=== PATIENT | female | born 1950 | race Caucasian/White ===

== ENCOUNTER 2020-07-23 08:17 | Outpatient (REF) | payer MEDICARE, SELFPAY ==
[2020-07-23 12:21] LABS: Alanine Aminotransferase 19 U/L (0-31); Alkaline Phosphatase 59 U/L (39-117); Anion Gap 10 (12-20); Aspartate Amino Transferase 16 U/L (5-31); Bilirubin Total 0.6 mg/dL (0.0-1.0); Blood Urea Nitrogen 21 mg/dL (9-16); Calcium 8.8 mg/dL (8.4-10.2); Carbon Dioxide 29 mmol/L (22-29); Chloride 103 mmol/L (96-108); Cholesterol 241 mg/dL; Estimated Glomerular Filt Rate > 60; Glucose Fasting 92 mg/dL (60-99); HDL Cholesterol 56 mg/dL; LDL Cholesterol Calculated 169 mg/dl; Potassium 4.4 mmol/L (3.3-5.1); Sodium 138 mmol/L (135-145); Total Protein 6.4 g/dL (6.5-8.0); Triglycerides 81 mg/dL
== END 2020-07-23 08:18 | disposition home or self-care (01) ==
LOC: HO.MANLDS 08:17
PROVIDERS: PCP Internal Medicine; Visit Provider Internal Medicine
DX: E78.5 Hyperlipidemia, unspecified (principal)
CPT/HCPCS: 36415; 80053; 80061

== ENCOUNTER 2020-11-05 08:14 | Outpatient (REF) | payer MEDICARE, SELFPAY ==
[2020-11-05 12:07] LABS: Cholesterol 262 mg/dL; HDL Cholesterol 60 mg/dL; LDL Cholesterol Calculated 185 mg/dl; Triglycerides 88 mg/dL
== END 2020-11-05 08:15 | disposition home or self-care (01) ==
LOC: HO.MANLDS 08:14
PROVIDERS: PCP Internal Medicine; Visit Provider Internal Medicine
DX: E78.5 Hyperlipidemia, unspecified (principal)
CPT/HCPCS: 36415; 80061

== ENCOUNTER 2021-02-06 08:35 | Outpatient (REF) | payer MEDICARE, SELFPAY ==
[2021-02-06 10:49] LABS: Hematocrit 38.1 % (37.0-47.0); Hemoglobin 12.3 g/dl (12.0-16.0); Mean Corpuscular HGB Conc 32.3 g/dl (31.0-35.0); Mean Corpuscular Hemoglobin 29.9 pg (27.0-33.0); Mean Corpuscular Volume 92.5 fL (80.0-98.0); Mean Platelet Volume 11.1 fL (9.4-12.3); Platelet Count 212 X10*3/uL (160-400); Red Blood Count 4.12 X10*6/uL (4.20-5.50); Red Cell Distribution Width 13.2 % (11.0-16.0); White Blood Count 4.5 X10*3/uL (4.8-10.8)
[2021-02-06 11:27] LABS: Alanine Aminotransferase 17 U/L (0-31); Alkaline Phosphatase 62 U/L (39-117); Anion Gap 9 (12-20); Aspartate Amino Transferase 19 U/L (5-31); Bilirubin Total 0.7 mg/dL (0.0-1.0); Blood Urea Nitrogen 15 mg/dL (9-16); Carbon Dioxide 30 mmol/L (22-29); Chloride 103 mmol/L (96-108); Cholesterol 169 mg/dL; Estimated Glomerular Filt Rate > 60; Glucose Fasting 101 mg/dL (60-99); HDL Cholesterol 62 mg/dL; LDL Cholesterol Calculated 95 mg/dl; Magnesium 2.1 mg/dL (1.6-2.6); Potassium 4.5 mmol/L (3.3-5.1); Sodium 137 mmol/L (135-145); Total Protein 6.5 g/dL (6.5-8.0); Triglycerides 61 mg/dL
[2021-02-06 11:47] LABS: Vitamin D 25-OH Total 26.9 ng/mL (>30)
[2021-02-06 11:56] LABS: Vitamin B12 414 pg/mL (200-900)
== END 2021-02-06 08:36 | disposition home or self-care (01) ==
LOC: HO.MANLDS 08:35
PROVIDERS: PCP Internal Medicine; Visit Provider Internal Medicine
DX: E78.5 Hyperlipidemia, unspecified (principal); I10 Essential (primary) hypertension
CPT/HCPCS: 36415; 80053; 80061; 82306; 82607; 83735; 85027

== ENCOUNTER 2021-07-15 08:28 | Outpatient (REF) | payer MEDICARE, SELFPAY ==
[2021-07-15 11:44] LABS: Alanine Aminotransferase 14 U/L (0-31); Albumin Level 3.8 g/dL (3.5-5.0); Alkaline Phosphatase 65 U/L (39-117); Anion Gap 8 (12-20); Aspartate Amino Transferase 19 U/L (5-31); Bilirubin Total 0.6 mg/dL (0.0-1.0); Blood Urea Nitrogen 16 mg/dL (9-16); Calcium 8.8 mg/dL (8.4-10.2); Carbon Dioxide 28 mmol/L (22-29); Chloride 106 mmol/L (96-108); Cholesterol 157 mg/dL; Estimated Glomerular Filt Rate > 60; Glucose Fasting 107 mg/dL (60-99); HDL Cholesterol 55 mg/dL; LDL Cholesterol Calculated 94 mg/dl; Potassium 4.2 mmol/L (3.3-5.1); Sodium 138 mmol/L (135-145); Total Protein 6.4 g/dL (6.5-8.0); Triglycerides 42 mg/dL
== END 2021-07-15 08:29 | disposition home or self-care (01) ==
LOC: HO.MANLDS 08:28
PROVIDERS: PCP Internal Medicine; Visit Provider Internal Medicine
DX: I10 Essential (primary) hypertension (principal); E78.5 Hyperlipidemia, unspecified
CPT/HCPCS: 36415; 80053; 80061

== ENCOUNTER 2023-03-03 08:35 | Outpatient (REF) | payer MEDICARE, SELFPAY ==
[2023-03-03 13:48] LABS: MANUAL DIFF FLAG NO
[2023-03-03 13:55] LABS: Basophils Percent Auto 0.7 % (0-2); Eosinophils Absolute Auto 0.1 X10*3/uL (0.0-0.4); Eosinophils Percent Auto 2.8 % (0-4); Hematocrit 41.1 % (37.0-47.0); Imm Gran Abs Auto 0.01 X10*3/uL (0.00-0.03); Imm Gran Pct Auto 0.2 % (0.0-0.4); Lymphocytes Absolute Auto 1.1 X10*3/uL (1.2-4.9); Mean Corpuscular HGB Conc 31.6 g/dl (31.0-35.0); Mean Corpuscular Hemoglobin 29.5 pg (27.0-33.0); Mean Corpuscular Volume 93.4 fL (80.0-98.0); Mean Platelet Volume 11.1 fL (9.4-12.3); Monocytes Absolute Auto 0.4 X10*3/uL (0.1-1.2); Monocytes Percent Auto 9.6 % (2-11); Neutrophils Absolute Auto 2.9 x10*3/uL (2.0-8.3); Neutrophils Percent Auto 62.7 % (45-73); Platelet Count 207 X10*3/uL (160-400); Red Cell Distribution Width 13.4 % (11.0-16.0); White Blood Count 4.6 X10*3/uL (4.8-10.8)
[2023-03-03 14:36] LABS: Alanine Aminotransferase 18 U/L (0-31); Alkaline Phosphatase 63 U/L (39-117); Anion Gap 12 (12-20); Aspartate Amino Transferase 23 U/L (5-31); Bilirubin Total 0.6 mg/dL (0.0-1.0); Blood Urea Nitrogen 18 mg/dL (9-16); Calcium 9.4 mg/dL (8.4-10.2); Carbon Dioxide 27 mmol/L (22-29); Chloride 104 mmol/L (96-108); Cholesterol 170 mg/dL (<200); Estimated Glomerular Filt Rate > 60; Glucose Random 91 mg/dL (60-115); HDL Cholesterol 63 mg/dL (>40); LDL Cholesterol Calculated 91 mg/dL (<100); Potassium 4.1 mmol/L (3.3-5.1); Sodium 139 mmol/L (135-145); Total Protein 7.1 g/dL (6.5-8.0); Triglycerides 82 mg/dL (<150); Vitamin D 25-OH Total 60.1 ng/mL (>30)
== END 2023-03-03 08:36 | disposition home or self-care (01) ==
LOC: HO.MANLDS 08:35
PROVIDERS: Visit Provider Internal Medicine
DX: I10 Essential (primary) hypertension (principal)
CPT/HCPCS: 36415; 80053; 80061; 82306; 85025

== ENCOUNTER 2024-02-16 13:47 | Outpatient (REF) | payer MEDICARE, SELFPAY ==
[2024-02-16 13:54] LABS: MANUAL DIFF FLAG NO
[2024-02-16 15:01] LABS: Basophils Percent Auto 0.3 % (0-2); Eosinophils Absolute Auto 0.1 X10*3/uL (0.0-0.4); Eosinophils Percent Auto 1.7 % (0-4); Hematocrit 36.2 % (37.0-47.0); Hemoglobin 11.8 g/dl (12.0-16.0); Imm Gran Abs Auto 0.01 X10*3/uL (0.00-0.03); Imm Gran Pct Auto 0.2 % (0.0-0.4); Lymphocytes Absolute Auto 1.2 X10*3/uL (1.2-4.9); Mean Corpuscular HGB Conc 32.6 g/dl (31.0-35.0); Mean Corpuscular Hemoglobin 30.2 pg (27.0-33.0); Mean Corpuscular Volume 92.6 fL (80.0-98.0); Monocytes Absolute Auto 0.4 X10*3/uL (0.1-1.2); Monocytes Percent Auto 7.3 % (2-11); Neutrophils Absolute Auto 4.2 x10*3/uL (2.0-8.3); Neutrophils Percent Auto 70.5 % (45-73); Platelet Count 211 X10*3/uL (160-400); Red Blood Count 3.91 X10*6/uL (4.20-5.50); Red Cell Distribution Width 13.5 % (11.0-16.0)
[2024-02-16 15:06] LABS: Alanine Aminotransferase 20 U/L (0-31); Albumin Level 3.9 g/dL (3.5-5.0); Alkaline Phosphatase 58 U/L (39-117); Anion Gap 10 (12-20); Aspartate Amino Transferase 31 U/L (5-31); Bilirubin Total 0.6 mg/dL (0.0-1.0); Blood Urea Nitrogen 14 mg/dL (9-16); Carbon Dioxide 25 mmol/L (22-29); Chloride 103 mmol/L (96-108); Cholesterol 150 mg/dL (<200); Estimated Glomerular Filt Rate > 60; Glucose Random 97 mg/dL (60-115); HDL Cholesterol 55 mg/dL (>40); LDL Cholesterol Calculated 77 mg/dL (<100); Potassium 3.7 mmol/L (3.3-5.1); Sodium 134 mmol/L (135-145); Total Protein 6.5 g/dL (6.5-8.0); Triglycerides 90 mg/dL (<150)
[2024-02-16 15:21] LABS: Vitamin D 25-OH Total 59.3 ng/mL (>30)
== END 2024-02-16 13:48 | disposition home or self-care (01) ==
LOC: HO.MANLNP 13:47
PROVIDERS: Visit Provider Internal Medicine
DX: I10 Essential (primary) hypertension (principal)
CPT/HCPCS: 36415; 80053; 80061; 82306; 85025

== ENCOUNTER 2025-01-03 14:27 | Outpatient (REF) | payer MEDICARE, SELFPAY ==
--- OUTSIDE RECORDS SUMMARY | 2025-01-03 17:21 | XMS_ITS | Encounter Summary ---
Author Organization [facility] Address [address] [address] Phone Care Team Providers Care Wellness Coordinator Name Role Phone Kyaw Rao DO Unavailable Ronen Elizondo MD Unavailable Maria G Alves RAILROAD CAR REPAIR SUPERVISOR Unavailable [phone] Sana Collazo MD Unavailable Ruma Bolivar RDCS Unavailable [email or web address] Saira Quevedo MD Unavailable [phone] Melissa Chandra RAILROAD CAR REPAIR SUPERVISOR Unavailable Beto Paul MD Unavailable Kyaw Rao DO Primary Care Provider [phone] Kyaw Rao DO Primary Care Provider [phone] Encounter Details Date Type Department Care Team (Late st Contact Info) Description 11/28/2019 Procedure Pass [facility], [address] [address] Social History Tobacco Use Types Packs/Day Years Used Date Smoking Tobacco: Never Smokeless Tobacco: Never Alcohol Use Standard Drinks/Week Comments Yes 1 (1 standard drink = 0.6 oz pur e alcohol) 1 glass per month Comments No Sex and Gender Information Value Date Recorded Sex Assigned at Female 05/07/2021 9:30 PM EST Legal Sex Female 10:02 PM EDT Gender Identity Female 05/07/2021 9:30 PM EST Sexual Orientation Straight 05/07/2021 9: 30 PM EST 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 Not on file Not on file Not on file documented as of this encounter Plan of Treatment Not on file documented as of this encounter Visit Diagnoses Not on filedocumented in this encounter Care Teams Wellness Coordinator Relationship Specialty Start Date End Date Kyaw Rao DO PCP - General Internal Medicine 01/22/17 10/04/24 Kyaw Rao DO [address] [place] [address] PCP - General Internal Medicine 10/05/24 Kyaw Rao DO Historical LMR Provider 01/05/17 Ronen Elizondo MD [address] [address] Historical LMR Provider 01/05/17 Maria G Alves NP [address] [place] [address] [email or web address] Historical LMR Provider 01/05/17 2 Sana Collazo MD [address] [address] Historical LMR Provider 01/05/17 Ruma Bolivar, ARUNA Historical LMR Provider 01/05/17 03/30/21 Saira Quevedo MD [address] [place] [address] [facility] [place] [address] [email or web address] Historical LMR Provider 01/05/17 Melissa Chandra NP [address] [place] [address] Historical LMR Provider 01/05/17 2 Beto Paul MD [address] [place] [address] Historical LMR Provider 01/05/17 2 documented as of this encounter Additional Source Comments The information contained in this document represents components of the legal health record. It is not the complete legal health record.[facility]
--- OUTSIDE RECORDS SUMMARY | 2025-01-03 17:22 | XMS_ITS | Encounter Summary ---
Author Organization [facility] Address [address] [address] Phone Care Team Providers Care Shampoo Person Name Role Phone Kyaw Rao DO Unavailable Ronen Elizondo MD Unavailable Maria G Alves NURSING SERVICE DIRECTOR Unavailable [phone] Sana Collazo MD Unavailable Ruma Bolivar RDCS Unavailable [email or web address] Saira Quevedo MD Unavailable [phone] Melissa Chandra NURSING SERVICE DIRECTOR Unavailable Beto Paul MD Unavailable Kyaw Rao DO Primary Care Provider [phone] Kyaw Rao DO Primary Care Provider [phone] Encounter Details Date Type Department Care Team (Late st Contact Info) Description 10/25/2019 Ancillary Orders Virtual Department [address] [place] [address] Kyaw Rao DO [address] [facility] [place] [address] [place] [address] [email or web address] Breast screening Social History Tobacco Use Types Packs/Day Years [...] 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 Recommend routine annual surveillance. BI-RADS CATEGORY 2 - BENIGN DENSITY: There are scattered fibroglandular densities. Narrative 12/28/2019 9:06 AM EDT 69-year-old female with no current breast symptoms. Comparison made to previous on 10/02/2017 and as far back as 07/31/2011. Interpretation made in conjunction with computer-aided detection and tomosynthesis. There are scattered areas of fibroglandular density. Stable bilateral scattered calcifications. There are no suspicious masses, areas of architectural distortion, or suspicious clusters of microcalcifications. Kyaw Rao DO IMG MG EXAMS Final Result documented in this encounter Visit Diagnoses Diagnosis Breast screening Breast screening, unspecified Breast screening Breast screening, unspecified documented in this encounter Care Teams Shampoo Person Relationship Specialty Start Date End Date Kyaw Rao DO PCP - General Internal Medicine 01/22/17 10/04/24 Kyaw Rao DO [address] [place] [address] PCP - General Internal Medicine 10/05/24 Kyaw Rao DO Historical LMR Provider 01/05/17 Ronen Elizondo MD [address] [place] [address] Historical LMR Provider 01/05/17 Maria G Alves NP 21 [place] [address] [email or web address] Historical LMR Provider 01/05/17 2 Sana Collazo MD [address] [place] [address] Historical LMR Provider 01/05/17 Ruma Bolivar, RDCS Historical LMR Provider 01/05/17 03/30/21 Saira Quevedo MD [address] [place] [address] [facility], [place] [address] Historical LMR Provider 01/05/17 Melissa Chandra NP [address] [place] [address] Historical LMR Provider 01/05/17 2 Beto Paul MD [address] [place] [address] Historical LMR Provider 01/05/17 2 documented as of this encounter Additional Source Comments The information contained in this document represents components of the legal health record. It is not the complete legal health record.[facility]
--- OUTSIDE RECORDS SUMMARY | 2025-01-03 17:22 | XMS_ITS | Encounter Summary ---
Author Organization [facility] Address [address] [address] Phone Care Team Providers Care Kaiako Kohanga Reo Name Role Phone Kyaw Rao DO Unavailable Ronen Elizondo MD Unavailable Maria G Alves NUTRITION TECHNICIAN Unavailable [phone] Sana Collazo MD Unavailable Ruma Bolivar RDCS Unavailable [email or web address] Saira Quevedo MD Unavailable [phone] Melissa Chandra NUTRITION TECHNICIAN Unavailable Beto Paul MD Unavailable Kyaw Rao DO Primary Care Provider [phone] Kyaw Rao DO Primary Care Provider [phone] Encounter Details Date Type Department Care Team (Late st Contact Info) Description 07/09/2017 Ancillary Orders Virtual Department [address] [place] [address] Radha Mccallum PA-C [address] [place] [address] Estrogen deficiency Social History Tobacco Use Types Packs/Day Years Used Date Smoking Tobacco: Unknown Smokeless Tobacco: Never Alcohol Use Standard Drinks/Week Comments Not Asked 1 (1 standard drink = 0.6 oz pur e alcohol) Comments Unknown Sex and Gender Information Value Date Recorded Sex Assigned at Female 05/07/2021 9:30 PM EST Legal Sex Female 10:02 PM EDT Gender Identity Female 05/07/2021 9:30 PM EST Sexual Orientation Straight 05/07/2021 9: 30 PM EST documented as of this encounter Plan of Treatment Not on file documented as of this encounter Results * BD DXA AXIAL (SPINE) WITH HIP (10/02/2017 9:15 AM EDT) Anatomical Region Laterality Modality Bone Density Bone Density 10/02/2017 11:1 8 AM EDT Impressions 10/02/2017 11:21 AM EDT Ongoing osteopenia in the lumbosacral spine with a mild decrease in BMD at all 3 sites since 2011 POS -[id number] Narrative 10/02/2017 11:21 AM EDT This is a 66-year-old female who reports no perceived height loss. No history of steroid use, hormone therapy nor calcium supplementation. Comparison is made to 05/07/2011. Evaluation of the lumbar spine and hips was performed and felt to be technically adequate. Total bone mineral density in the L1-L4 vertebral bodies was calculated at 0.852 gm/cm2 with a T score of -1.8. This falls within the WHO classification of osteopenia. This represents a -4.1% statistically significant decrease BMD since 2011. Total bone mineral density in the right proximal femur was calculated at 0.920 gm/cm2 with a T-score of -0.2 falling within the WHO classification of normal. This represents a -5.4% statistically significant decrease BMD since 2011. Total bone mineral density in the left proximal femur was calculated at 0.889 gm/cm2 with a T-score of -0.4 falling within the WHO classification of normal. This represents a statistically significant -6.9% decrease BMD since 2011. Procedure Note Sreedhar Subramanian MD - 10/02/2017 This is a 66-year-old female who reports no perceived heightloss. No history of steroid use, hormone therapy nor calcium supplementation. Comparison is made to 05/07/2011. Evaluation of the lumbar spine and hips was performed and felt to betechnically adequate. Total bone mineral density in the L1-L4 vertebral bodies was calculated at0.852 gm/cm2 with a T score of -1.8. This falls within the WHOclassification of osteopenia. This represents a -4.1% statistically significant decrease BMD since 2011. Total bone mineral density in the right proximal femur was calculated at0.920 gm/cm2 with a T-score of -0.2 falling within the WHO classificationof normal. This represents a -5.4% statistically significant decrease BMD [id number]. Total bone mineral density in the left proximal femur was calculated at0.889 gm/cm2 with a T-score of -0.4 falling within the WHO classificationof normal. This represents a statistically significant -6.9% decrease BMD since 2011. IMPRESSION: Ongoing osteopenia in the lumbosacral spine with a mild decrease in BMD atall 3 sites since 2011 POS -[id number] June Alessio LEYVA IMG BD BONE DENSITY DEXA Fin al Result documented in this encounter Visit Diagnoses Diagnosis Estrogen deficiency Other ovarian failure Estrogen deficiency Other ovarian failure documented in this encounter Care Teams Kaiako Kohanga Reo Relationship Specialty Start Date End Date Kyaw Rao DO PCP - General Internal Medicine 01/22/17 10/04/24 Kyaw Rao DO [address] [place] [address] PCP - General Internal Medicine 10/05/24 Kyaw Rao DO Historical LMR Provider 01/05/17 Ronen Elizondo MD [address] [place] [address] Historical LMR Provider 01/05/17 Maria G Alves NP 21 [place] [address] [email or web address] Historical LMR Provider 01/05/17 2 Sana Collazo MD [address] [facility], [address] [place] [address] Historical LMR Provider 01/05/17 Ruma Bolivar, CS Historical LMR Provider 01/05/17 03/30/21 Saira Quevedo MD [address] [place] [address] [facility], [place] [address] Historical LMR Provider 01/05/17 Melissa Chandra NP [address] [place] [address] Historical LMR Provider 01/05/17 2 Beto Paul MD [address] [place] [address] Historical LMR Provider 01/05/17 2 documented as of this encounter Additional Source Comments The information contained in this document represents components of the legal health record. It is not the complete legal health record.[facility]
--- OUTSIDE RECORDS SUMMARY | 2025-01-03 17:22 | XMS_ITS | Encounter Summary ---
Author Organization [facility] Address [address] [address] Phone Care Team Providers Care Store Operations Specialist Name Role Phone Kyaw Rao DO Unavailable Rnoen Elizondo MD Unavailable Sana Collazo MD Unavailable Kyaw Rao DO Primary Care Provider [phone] Kyaw Rao DO Primary Care Provider [phone] Encounter Details Date Type Department Care Team (Late st Contact Info) Description 05/18/2023 Transcribe Orders [facility] [address] [place] [address] Kyaw Rao DO [address] [facility] [place] [address] [place] [address] Social History Tobacco Use Types Packs/Day Years Used Date Smoking Tobacco: Never Smokeless Tobacco: Never Alcohol Use Standard Drinks/Week Comments Yes 1 (1 standard drink = 0.6 oz pur e alcohol) 1 glass per month Education Answer Date Recorded Are you interested in more education? Not on anu e 07/18/2022 Are you concerned about learning? Not on file 07/18/2022 No 07/18/2022 No 07/18/2022 Digital Access Answer Date Recorded No 08/16/2022 No 08/16/2022 Reliable internet access at home? Not on file 08/16/2022 Device with a working camera? 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 Not on file Not on file Not on file documented as of this encounter Plan of Treatment Not on file documented as of this encounter Visit Diagnoses Not on filedocumented in this encounter Care Teams Store Operations Specialist Relationship Specialty Start Date End Date Kyaw Rao DO PCP - General Internal Medicine 01/22/17 10/04/24 Kyaw Rao DO [address] [place] [address] PCP - General Internal Medicine 10/05/24 Kyaw Rao DO Historical LMR Provider 01/05/17 Ronen Elizondo MD [address] [place] [address] Historical LMR Provider 01/05/17 Sana Collazo MD [address] [place] [address] Historical LMR Provider 01/05/17 documented as of this encounter Additional Source Comments The information contained in this document represents components of the legal health record. It is not the complete legal health record.[facility]
--- OUTSIDE RECORDS SUMMARY | 2025-01-03 17:22 | XMS_ITS | Encounter Summary ---
Author Organization [facility] Address [address] [address] Phone Care Team Providers Care Gyroscopic Instrument Tester Name Role Phone Kyaw Rao DO Unavailable Ronen Elizondo MD Unavailable Maria G Alves PROJECT OFFICER Unavailable [phone] Sana Collazo MD Unavailable Ruma Bloivar RDCS Unavailable [email or web address] Saira Quevedo MD Unavailable [phone] Melissa Chandra PROJECT OFFICER Unavailable Beto Paul MD Unavailable Kyaw Rao DO Primary Care Provider [phone] Kyaw Rao DO Primary Care Provider [phone] Encounter Details Date Type Department Care Team (Late st Contact Info) Description 01/22/2017 Procedure Pass [facility] Admitting Dept Virtual Department [address] [place] [address] Social History Tobacco Use Types Packs/Day Years [...] on filedocumented in this encounter Care Teams Gyroscopic Instrument Tester Relationship Specialty Start Date End Date Kyaw Rao DO PCP - General Internal Medicine 01/22/17 10/04/24 Kyaw Rao DO [address] [place] [address] PCP - General Internal Medicine 10/05/24 Kyaw Rao DO Historical LMR Provider 01/05/17 Ronen Elizondo MD [address] [place] [address] Historical LMR Provider 01/05/17 Maria G Alves NP [address] [place] [address] [email or web address] Historical LMR Provider 01/05/17 2 Sana Collazo MD [address] [address] Historical LMR Provider 01/05/17 Ruma Bolivar RDCS Historical LMR Provider 01/05/17 03/30/21 Saira Quevedo MD [address] [place] [address] [facility], [place] [address] [email or web address] Historical LMR Provider 01/05/17 Melissa Chandra NP [address] [place] [address] Historical LMR Provider 01/05/17 2 Beto Paul MD [address] [place] [address] Historical LMR Provider 01/05/17 2 documented as of this encounter Additional Source Comments The information contained in this document represents components of the legal health record. It is not the complete legal health record.[facility]
--- OUTSIDE RECORDS SUMMARY | 2025-01-03 17:22 | XMS_ITS | Encounter Summary ---
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 Not on file Not on file documented as of this encounter Plan of Treatment Not on file documented as of this encounter Visit Diagnoses Not on filedocumented in this encounter Care Teams Telephone Exchange Operator Relationship Specialty Start Date End Date Kyaw Rao DO PCP - General Internal Medicine 01/22/17 10/04/24 Kyaw Rao DO [address] [place] [address] PCP - General Internal Medicine 10/05/24 Kyaw Rao DO Historical LMR Provider 01/05/17 Ronen Elizondo MD [address] [place] [address] Historical LMR Provider 01/05/17 Sana Collazo MD [address] [place] [address] Historical LMR Provider 01/05/17 documented as of this encounter Additional Source Comments The information contained in this document represents components of the legal health record. It is not the complete legal health record.[facility]
--- OUTSIDE RECORDS SUMMARY | 2025-01-03 17:22 | XMS_ITS | Encounter Summary ---
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 Not on file Not on file documented as of this encounter Plan of Treatment Not on file documented as of this encounter Visit Diagnoses Not on filedocumented in this encounter Care Teams Cover Assembler Relationship Specialty Start Date End Date Kyaw Rao DO PCP - General Internal Medicine 01/22/17 10/04/24 Kyaw Rao DO [address] [place] [address] PCP - General Internal Medicine 10/05/24 Kyaw Rao DO Historical LMR Provider 01/05/17 Ronen Elizondo MD [address] [place] [address] Historical LMR Provider 01/05/17 Sana Collazo MD [address] [place] [address] Historical LMR Provider 01/05/17 documented as of this encounter Additional Source Comments The information contained in this document represents components of the legal health record. It is not the complete legal health record.[facility]
--- OUTSIDE RECORDS SUMMARY | 2025-01-03 17:22 | XMS_ITS | Encounter Summary ---
Author Organization [facility] Address [address] [address] Phone Care Team Providers Care Traffic Manager Name Role Phone Kyaw Rao DO Unavailable Ronen Elizondo MD Unavailable Sana Collazo MD Unavailable Maira, Kyaw Wu DO Primary Care Provider [phone] Kyaw Rao DO Primary Care Provider [phone] Reason for Referral * MRI/CAT Scan - Closed Specialty Diagnoses / Procedures Referred By Hill james Referred To Contact Radiology Diagnoses Unspecified fall, initial encounter Procedures CT Chest CHG DIAGNOSTIC COMPUTED TOMOGRAPHY THORAX W/O CNTRST Corrie Flores PA [address] [facility] [place] [address] Phone: tel: fax: Referral ID Status Reason Start Date Expiration Date Visits Re quested Visits Authorized [id number] Closed 09/13/2024 11/12/2024 1 1 * MRI/CAT Scan - Closed Specialty Diagnoses / Procedures Referred By Hill james Referred To Contact Radiology Diagnoses Unspecified fall, initial encounter Procedures MRI Shoulder (Right) CHG MRI, JOINT UPPER EXTREM Corrie Flores PA [address] [facility] [place] [place] [address] Phone: tel: fax: Referral ID Status Reason Start Date Expiration Date Visits Re quested Visits Authorized [id number] Closed 09/12/2024 11/11/2024 1 1 Encounter Details Date Type Department Care Team (Latest Contact Info) Description 09/13/2024 Transcribe Orders Virtual Department [address] [place] [address] Corrie Flores PA [address] [facility] [place] [place] [address] Unspecified fall, initial encounter (Primary Dx) Social History Tobacco Use Types Packs/Day Years [...] 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 Mild rotator cuff degenerative tendinosis including minor insertional partial tearing/fraying of the supraspinatus and infraspinatus. No high-grade focal or full thickness tear, nor retraction. No significant chronic muscle atrophy. 2. No evidence of acute or displaced fracture. There may be some faint marrow edema versus artifact within the base of the coracoid. 3. Mild acromioclavicular arthrosis and minor glenohumeral degenerative change. Narrative 10/08/2024 8:58 AM EDT MRI SHOULDER WITHOUT CONTRAST (RIGHT) Referring clinician's provided indication for this examination in [facility]: Outside Radiology Order; fall HISTORY: Right shoulder pain. COMPARISONS: None. TECHNIQUE: Multiplanar, multisequence imaging through the right shoulder, without IV gadolinium. Study mildly limited by motion/artifact on some of the sequences.a FINDINGS: ROTATOR CUFF: Mild supraspinatus and infraspinatus insertional degenerative tendinosis with mild partial tearing, particularly along the insertional fibers of the supraspinatus but to a lesser degree the posterior insertional fibers of the infraspinatus. No full-thickness component or retraction. Mild subscapularis tendinosis. No significant muscle atrophy within the rotator cuff. No significant bursitis. AC JOINT: Mild degenerative changes with mild hypertrophy and subcortical signal change. BONE MARROW: Minor degenerative edema and cystic change within the acromioclavicular joint. No evidence of acute fracture. There may be some faint signal or marrow edema within the coracoid versus artifact. BICIPITAL TENDON: The long head of the biceps is intact and normally situated. GLENOID LABRUM: Limited nonarthrographic labral assessment. Somewhat limited labral assessment given [id number] and [id number] ratio. The labrum is slightly diminutive with some minor intrasubstance signal within the superior labrum. GLENOHUMERAL JOINT: Mild degenerative changes. No marrow edema or joint effusion. PERIARTICULAR SOFT TISSUES: Otherwise unremarkable. Procedure Note Dev Smith MD - 10/08/2024 MRI SHOULDER WITHOUT CONTRAST (RIGHT) Referring clinician's provided indication for this examination in [facility]:Outside Radiology Order; fall HISTORY: Right shoulder pain. COMPARISONS: None. TECHNIQUE: Multiplanar, multisequence imaging through the right shoulder,without IV gadolinium. Study mildly limited by motion/artifact on some ofthe sequences.a FINDINGS: ROTATOR CUFF: Mild supraspinatus and infraspinatus insertionaldegenerative tendinosis with mild partial tearing, particularly along theinsertional fibers of the supraspinatus but to a lesser degree theposterior insertional fibers of the infraspinatus. No full-thicknesscomponent or retraction. Mild subscapularis tendinosis. No significantmuscle atrophy within the rotator cuff. No significant bursitis. AC JOINT: Mild degenerative changes with mild hypertrophy and subcorticalsignal change. BONE MARROW: Minor degenerative edema and cystic change within theacromioclavicular joint. No evidence of acute fracture. There may be somefaint signal or marrow edema within the coracoid versus artifact. BICIPITAL TENDON: The long head of the biceps is intact and normallysituated. GLENOID LABRUM: Limited nonarthrographic labral assessment. Somewhatlimited labral assessment given [id number] and [id number] ratio.The labrum is slightly diminutive with some minor intrasubstance signalwithin the superior labrum. GLENOHUMERAL JOINT: Mild degenerative changes. No marrow edema or jointeffusion. PERIARTICULAR SOFT TISSUES: Otherwise unremarkable. IMPRESSION: 1. Mild rotator cuff degenerative tendinosis including minor insertionalpartial tearing/fraying of the supraspinatus and infraspinatus. Nohigh-grade focal or full thickness tear, nor retraction. No significantchronic muscle atrophy. 2. No evidence of acute or displaced fracture. There may be some faintmarrow edema versus artifact within the base of the coracoid. 3. Mild acromioclavicular arthrosis and minor glenohumeral degenerativechange. Corrie GIARRD IMG MR EXTREMITY Final Resu lt * CT CHEST WITHOUT CONTRAST (10/05/2024 4:30 PM EDT) Anatomical Region Laterality Modality Chest Computed Tomogra phy 10/14/2024 8:38 AM EDT Impressions 10/14/2024 9:13 AM EDT 1. Mild left basilar atelectatic change without fracture or other post-traumatic abnormality suggested. Small incidental pulmonary nodules of doubtful significance. Narrative 10/14/2024 9:[address] CHEST WITHOUT CONTRAST Referring clinician's provided indication for this examination in [facility]: Outside Radiology Order; fall TECHNIQUE: Multidetector CT of the chest was performed without intravenous contrast using tailored dose modulation. COMPARISON: None FINDINGS: Devices/Tubes/Lines: None. Lungs: Moderately well-expanded. Minimal streaky parenchymal consolidation at the base of the left lower lobe and lingula is most likely atelectatic with minimal similar opacity seen in the basal medial right middle lobe. Dependent-type subpleural interstitial opacities in the right lower lobe. Scattered sub-3 mm pulmonary nodules (examples series 3 images 34, 38, 63, 65). Small right lower lobe granuloma. No endotracheal or mainstem endobronchial nodules. Pleura: No pleural effusion or pneumothorax. Mediastinum: No abnormal fluid collection. Aortic margins well-defined. Atherosclerotic plaquing. Visualized thyroid unremarkable. Lymph Nodes: No enlarged mediastinal, supraclavicular, or axillary nodes. Upper Abdomen: No adrenal nodules. No acute abnormality of the visualized visceral structures. Chest Wall: No chest wall mass or hematoma. Bones: No acute traumatic bony abnormality. Procedure Note Salvatore Palma MD - 10/14/2024 CT CHEST WITHOUT CONTRAST Referring clinician's provided indication for this examination in [facility]:Outside Radiology Order; fall TECHNIQUE: Multidetector CT of the chest was performed without intravenouscontrast using tailored dose modulation. COMPARISON: None FINDINGS: Devices/Tubes/Lines: None. Lungs: Moderately well-expanded. Minimal streaky parenchymal consolidationat the base of the left lower lobe and lingula is most likely atelectaticwith minimal similar opacity seen in the basal medial right middle lobe.Dependent-type subpleural interstitial opacities in the right lower lobe.Scattered sub-3 mm pulmonary nodules (examples series 3 images 34, 38, 63,65). Small right lower lobe granuloma. No endotracheal or mainstemendobronchial nodules. Pleura: No pleural effusion or pneumothorax. Mediastinum: No abnormal fluid collection. Aortic margins well-defined.Atherosclerotic plaquing. Visualized thyroid unremarkable. Lymph Nodes: No enlarged mediastinal, supraclavicular, or axillarynodes. Upper Abdomen: No adrenal nodules. No acute abnormality of the visualizedvisceral structures. Chest Wall: No chest wall mass or hematoma. Bones: No acute traumatic bony abnormality. IMPRESSION: 1. Mild left basilar atelectatic change without fracture or otherpost-traumatic abnormality suggested. Small incidental pulmonary nodulesof doubtful significance. Corrie GIRARD IMG CT CHEST Final Resul t documented in this encounter Visit Diagnoses Diagnosis Unspecified fall, initial encounter- Primary Unspecified fall, initial encounter Unspecified fall, initial encounter documented in this encounter Care Teams Traffic Manager Relationship Specialty Start Date End Date Kyaw Rao DO PCP - General Internal Medicine 01/22/17 10/04/24 Kyaw Rao DO [address] [place] [id number] PCP - General Internal Medicine 10/05/24 Kyaw Rao DO Historical LMR Provider 01/05/17 Ronen Elizondo MD [address] [place] [id number] Historical LMR Provider 01/05/17 Sana Collazo MD [address] [place] [id number] Historical LMR Provider 01/05/17 documented as of this encounter Additional Source Comments The information contained in this document represents components of the legal health record. It is not the complete legal health record.[facility]
--- OUTSIDE RECORDS SUMMARY | 2025-01-03 17:22 | XMS_ITS | Encounter Summary ---
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 Not on file Not on file documented as of this encounter Plan of Treatment Not on file documented as of this encounter Visit Diagnoses Not on filedocumented in this encounter Care Teams Horseshoer Relationship Specialty Start Date End Date Kyaw Rao DO PCP - General Internal Medicine 01/22/17 10/04/24 Kyaw Rao DO [address] [place] [id number] PCP - General Internal Medicine 10/05/24 Kyaw Rao DO Historical LMR Provider 01/05/17 Ronen Elizondo MD [address] [place] [id number] Historical LMR Provider 01/05/17 Sana Collazo MD [address] [place] [id number] Historical LMR Provider 01/05/17 documented as of this encounter Additional Source Comments The information contained in this document represents components of the legal health record. It is not the complete legal health record.[facility]
--- OUTSIDE RECORDS SUMMARY | 2025-01-03 17:22 | XMS_ITS | Clinical Summary ---
Author Organization [facility] Address [address] [address] Phone Care Team Providers Care Learning Services Coordinator Name Role Phone Kyaw Rao DO Unavailable Ronen Elizondo MD Unavailable Sana Collazo MD Unavailable Kyaw Rao DO Primary Care Provider [phone] Allergies Active Allergy Reactions Criticality Noted Date Comments Amoxicillin Rash Low 09/07/2015 Other 11/30/2017 Certain red sauces cause lip irritation Peanut Butter Flavor 11/30/2017 Cold sore Medications metoprolol succinate (TOPROL-XL) 50 MG 24 hr tablet 100 mg daily. Active propylene glycol (SYSTANE BALANCE) 0.6 % Drop Place 1 drop into each eye every hour as needed. Active latanoprost (XALATAN) 0.005 % ophthalmic solution INSTILL 1 DROP IN THE RIGHT EYE AT BEDTIME 12 9 Active rosuvastatin (CRESTOR) 5 MG tablet Take 5 mg by mouth daily. 2 Active timolol (TIMOPTIC) 0.5 % ophthalmic solution INSTILL 1 DROP INTO THE RIGHT EYE TWO TIMES A DAY 2 Active timolol (BETIMOL OPHT) 2 times a day, Refills 0, Maintenance, 10/30/21 13:33:00 EDT, Partial fill upon patient request if the prescription is for a schedule II opioid drug. 2 Active dorzolamide HCl (DORZOLAMIDE OPHT) Apply to eye. Active propylene glycol/peg 400/PF (SYSTANE, PF, OPHT) Apply 1 drop to eye. 3 Active calcium carbonate-vitam in D3 1,000 mg-20 mcg (800 unit) Tab Take 25 mcg by mouth. 3 Active lisinopril (PRINIVIL,ZESTR IL) 5 MG tablet Take 5 mg by mouth every morning. 4 Active estradioL (ESTRACE) 0.01 % (0.1 mg/gram) vaginal creamIndication s:Atrophic vaginitis USE 1/2 (HALF) GRAM TWICE WEEKLY 42.5 g 3 4 Active Active Problems Problem Noted Date Diagnosed Date Vaginitis and vulvovaginitis 02/24/2019 Overview (09/30/2021): Reports doing well with weekly boric acid to prevent yeast infections Assessment & Plan (01/06/2022 3:08 PM EDT): No signs of yeast today, only introital erythema and vag dryness- Rx for trimacin plus another for nystatin, use both BID for a few weeks, taper to once weekly Use E 2 for the vaginal dryness Assessment & Plan (11/21/2021 12:26 PM EDT): No evidence today of yeast infection, she may have self treated successfully with just the 1 dose of boric acid May have some residual irritation, so topical steroid ointment (betamethasone) sent Assessment & Plan (02/24/2019 1:21 PM EST): No signs of yeast today Continue with topicals, await cx result to check for yeast and specaite My need halfway weekly boric acid vaginally, discussed 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 Initial good result. Repeat exam with vault prolapse to the introitus. Assessment & Plan (09/30/2021 5:19 PM EDT): On exam today, there is also significant component of rectocele. Anterior support is still very good Recommend consultation with urogynecologist regarding the pros and cons and techniques that would be used for a repeat repair. Overweight with body mass index (BMI) 25.0-29.9 11/02/2017 Essential hypertension 10/30/2017 Hyperlipidemia 10/30/2017 Osteopenia 10/30/2017 Resolved Problems Problem Noted Date Diagnosed Date Resolved Date Uterovaginal prolapse, complete 12/02/2017 12/03/2017 Uterine prolapse 10/30/2017 11/26/2017 Complete uterovaginal prolapse 08/31/2017 01/27/2018 Overview (12/03/2017): Cervix to +3, Anterior to +1, posterior to -1. Surgically corrected 12/02/2017. Assessment & Plan (12/02/2017 7:11 AM EDT): Cervix to +3, Anterior to +1, posterior to -1. Currently managed by #5 ring pessary with support. Patient has requested surgery. Uterine prolapse 08/05/2017 08/31/2017 Assessment & Plan (08/05/2017 12:33 PM EDT): Is most interested in surgery; would benefit from PT for the relaxed levators , but that will not help the prolapse; recommend appt with Dr Elizondo for detailed exam and in depth discussion Encounters Date Type Department Care Team Description 10/05/2024 4:31 PM EDT - 10/05/2024 11:59 PM EDT Hospital Encounter [address] [address] Corrie Flores PA Discharge Disposition: Home or Self Care 10/05/2024 4:10 PM EDT - 10/05/2024 4:30 PM EDT Hospital Encounter [address] [address] Corrie Flores PA Discharge Disposition: Home or Self Care 09/13/2024 Procedure Pass [address] [address] 09/13/2024 Procedure Pass [facility], [address] [address] from Last 3 Months Immunizations Immunization Administration Dates Next Due Influenza High-Dose Trivalent Preservative Free IM 01/30/2017,01/10/2016 Influenza Quadrivalent w/ Preservative IM 2017 Influenza Trivalent Adjuvanted Preservative free IM 12/31/2017 Pneumococcal polysaccharide PPSV23 01/10/2015 Pneumococcal, Unspecified Formulation 12/21/2014 Tdap 01/10/2015 Zoster live 02/20/2014 Family History Medical History Relation Comments CV disease Father Heart attack Father Diverticulitis Mother Stroke Mother Heart attack Sister Heart failure Sister Stroke Sister Breast cancer Neg Hx Relation Status Comments Daughter Alive Father Mother Sister (Age 49) Son Social History Tobacco Use Types Packs/Day Years [...] 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 Not on file Not on file Last Filed Vital Signs Vital Sign Reading Time Taken Comments Blood Pressure 138/88 06/16/2023 9:22 AM EDT Pulse 67 05/07/2021 10:55 PM EST Temperature 37.1 C (98.8 F) 05/07/2021 9:23 PM EST Respiratory Rate 18 05/07/2021 10:55 PM EST Oxygen Saturation 97% 05/07/2021 10:55 PM EST Inhaled Oxygen Concentration - - Weight 64.4 kg (142 lb) 10/02/2024 11:07 AM EDT Height 152.4 cm (5') 10/02/2024 11:07 AM EDT Body Mass Index 27.73 10/02/2024 11:07 AM EDT Plan of Treatment Health Maintenance Due Date Last Done Comments DEPRESSION SCREENING 1961 HEPATITIS C SCREENING 12/20/1967 COLOGUARD 1994 FIT TEST 1994 FOBT 1994 SIGMOIDOSCOPY 1994 VIRTUAL COLONOSCOPY 1994 PNEUMOCOCCAL VACCINES (50+ years) (2 of 2 - PCV) 01/11/2016 01/10/2015 LIPID PANEL 01/18/2020 01/17/2015 ZOSTER VACCINES (3 of 3) 12/30/2021 11/04/2021, 12/03/2013 CREATININE LEVEL 05/07/2022 05/07/2021 POTASSIUM LEVEL 05/07/2022 05/07/2021 BLOOD PRESSURE 12/17/2023 06/16/2023 INFLUENZA VACCINE (#1) 2024 , 01/21/2022, 01/08/2022, Additional history exists COVID-19 VACCINE ( season) 2024 01/22/2023, 02/03/2022, 12/23/2020, Additional history exists RSV VACCINE (1 - 1-dose 75+ series) 2024 Adult Td,Tdap Booster 01/10/2025 01/10/2015 MAMMOGRAM 08/16/2025 08/16/2024, 0605/2022, 12/28/2019, Additional history exists COLONOSCOPY 01/22/2027 01/22/2017 COLORECTAL CANCER SCREENING 01/22/2027 OSTEOPOROSIS SCREENING INITIAL (ONE-TIME) Completed 10/02/2017 SMOKING STATUS SCREENING (Once After 26 Yrs) Completed 08/16/2024 HEPATITIS A VACCINES Aged Out No long er eligible based on patient's age to complete this topic HIB VACCINES Aged Out No longer eligi ble based on patient's age to complete this topic MENINGOCOCCAL VACCINES (ACWY) Aged Out No longer eligible based on patient's age to complete this topic MENINGOCOCCAL VACCINES (B) Aged Out N o longer eligible based on patient's age to complete this topic Medical Devices Implanted Type Area Survey Questionnaire Designer Device Identifier Shelf Expiration Date Model / Serial / Lot System Halo Obtryx 2 Transobturator Sling - [id number] Implanted:Qty: 1 on 12/02/2017 by Ronen Elizondo MD at [facility] [employer] [facility] 09/10/2020 [id number] / / [id number] Description:transobturator s ling Procedures Procedure Name Priority Date/Time Associated Diagnosis Comments MRI SHOULDER WITHOUT CONTRAST (RIGHT) Routine 10/05/2024 6:08 PM EDT Unspecified fall, initial encounter CT CHEST WITHOUT CONTRAST Routine 10/05/2024 4:30 PM EDT Unspecified fall, initial encounter BI MAMMOGRAM SCREENING WITH TOMOSYNTHESIS WITH CAD (BILATERAL) Routine 08/16/2024 8:36 AM EDT Encounter for gynecological examination without abnormal finding BASIC METABOLIC PANEL STAT 05/07/2021 10:15 PM EST BD DXA AXIAL (SPINE) WITH HIP Routine 10/02/2017 9:15 AM EDT Estrogen deficiency ENDOSCOPY, COLON 01/22/2017 10:1 3 AM EDT OUTSIDE LDL Routine 01/17/2015 from Last 3 Months or Most Recently Relevant to Health Maintenance Results * MRI SHOULDER WITHOUT CONTRAST (RIGHT) [...] indication for this examination in [facility]: Outside Radiology Order; fall HISTORY: Right shoulder [...] labral assessment. Somewhat limited labral assessment given [id number] and jsxixr-vr-[id number] ratio. The labrum is slightly diminutive with some minor intrasubstance signal within the superior labrum. GLENOHUMERAL JOINT: Mild degenerative changes. No marrow edema or joint effusion. PERIARTICULAR SOFT TISSUES: Otherwise unremarkable. Procedure Note Dev Smith MD - 10/08/2024 MRI SHOULDER WITHOUT CONTRAST (RIGHT) Referring clinician's provided indication for this examination in [facility]:Outside Radiology Order; fall HISTORY: Right shoulder pain. [...] nonarthrographic labral assessment. Somewhatlimited labral assessment given ubabm-lk-bbtb and eslglx-zv-zyjri ratio.The labrum is slightly diminutive with some [...] acromioclavicular arthrosis and minor glenohumeral degenerativechange. Corrie GIRARD IMG MR EXTREMITY Final Resu lt * [...] indication for this examination in [facility]: Outside Radiology Order; fall TECHNIQUE: Multidetector CT [...] indication for this examination in [facility]:Outside Radiology Order; fall TECHNIQUE: Multidetector CT of [...] GIRARD IMG CT CHEST Final Resul t * BI MAMMOGRAM SCREENING WITH TOMOSYNTHESIS WITH CAD (BILATERAL) (08/16/2024 8:36 AM EDT) Anatomical Region Laterality Modality Breast Left, Breast Right, Breast Bilateral Bila teral Mammography 08/17/2024 8:12 AM EDT Impressions 08/17/2024 8:13 AM EDT No mammographic evidence of malignancy in either breast. Annual screening mammography is recommended. BI-RADS 2 BENIGN The patient will be notified of the results and recommendations. Narrative 08/17/2024 8:13 AM EDT BI MAMMOGRAM SCREENING WITH TOMOSYNTHESIS WITH CAD (BILATERAL) Additional patient information: Screening. COMPARISON: Comparison is made with relevant prior imaging. Breast composition: There are scattered areas of fibroglandular density. FINDINGS: Benign calcifications in the left breast. No abnormal masses, suspicious calcifications, or other significant findings are identified mammographically in either breast. There has been no significant interval change. Procedure Note Radha Lambert MD - 08/17/2024 BI MAMMOGRAM SCREENING WITH TOMOSYNTHESIS WITH CAD (BILATERAL) Additional patient information: Screening. COMPARISON: Comparison is made with relevant prior imaging. Breast composition: There are scattered areas of fibroglandular density. FINDINGS: Benign calcifications in the left breast. No abnormal masses, suspicious calcifications, or other significantfindings are identified mammographically in either breast. There has been no significant interval change. IMPRESSION: No mammographic evidence of malignancy in either breast. Annual screening mammography is recommended. BI-RADS 2 BENIGN The patient will be notified of the results and recommendations. us Sana Collazo MD IMG MG EXAMS Final Result * (ABNORMAL) Basic metabolic panel (05/07/2021 10:15 PM EST) SODIUM 141 133 - 146 mmol/L [facility] CHLORIDE 104 96 - 108 mmol/L [facility] POTASSIUM 3.8 3.3 - 5.1 mmol/L [facility] CO2 28 21 - 35 mmol/L [facility] BUN 18 6 - 19 mg/dL [facility] CREATININE 0.60 0.5 - 1.5 mg/dL [facility] GLUCOSE 109(H) 70 - 99 mg/dL [facility] CALCIUM 9.4 8.4 - 10.3 mg/dL [facility] EGFR 96 >59 mL/min/1.7 3m2 [facility] Comment:Estimated glomerular filtration rate calculated using the CKD-EPI refit equation. ANION GAP 13 10 - 20 mmol/L [facility] Blood 05/07/2021 10:1 5 PM EST 05/07/2021 10:26 PM EST us Arvind Hong DO LAB BLOOD ORDERABLES Final Re sult Performing Organization Address City/State/[facility] Co de Phone Number [address] [address] * BD DXA AXIAL (SPINE) WITH HIP [...] represents a -5.4% statistically significant decrease BMD [id number]. Total bone mineral density in the left [...] BD BONE DENSITY DEXA Fin al Result * ENDOSCOPY, COLON (01/22/2017 10:13 AM EDT) Narrative Transcriptions Roopa Rios MD, MA - 01/22/2017 10:13 AM EDT Patient Name: Barbara Lang Attending MD:: ROOPA RIOS MD Procedure Date: 01/22/2017 10:13 AM Date of : 1950 Age: 66 Admit Type: Outpatient Gender: Female Room: [facility] Exam Type: Colonoscopy Indications: Screening for colorectal malignant neoplasm, Last colonoscopy: 2006 Medications: Monitored Anesthesia Care Procedure: Pre-Anesthesia Assessment: - Prior to the procedure, a History and Physical was performed, and patient medications and allergies were reviewed. The patient's tolerance of previousanesthesia was also reviewed. The risks and benefits of theprocedure and the sedation options and risks were discussed withthe patient. All questions were answered, and informedconsent was obtained. Prior Anticoagulants: The patient hastaken no previous anticoagulant or antiplatelet agents. ASA Grade Assessment: II - A patient with mild systemic disease. After reviewing the risks and benefits, the patient was deemed in satisfactory condition to undergo the procedure. Informed consent was obtained from the patient after discussion of the indications, limitations,alternatives, benefits, and risks of the procedure. Risksspecifically discussed include but are not limited to medication reactions, missed lesions, bleeding, perforation, orthe need for emergent surgery. Throughout the procedure, the patient's blood pressure, pulse, end-tidal CO2, and oxygen saturations were monitored continuously. The Olympus adult variable colonoscope [id number] #4 was introduced through the anus and advanced to the cecum, identified by the appendiceal orifice, IC valve and transillumination. The colonoscopy was performedwithout difficulty. The patient tolerated the procedure well.The quality of the bowel preparation was excellent. The appendiceal orifice was photographed. Retroflexion inthe cecum and ascending colon was performed and wasnormal. Complications: No immediate complications. Estimated blood loss:None. Findings: The perianal and digital rectal examinations werenormal. Non-bleeding internal hemorrhoids were found during retroflexion. The hemorrhoids were small. Multiple medium-mouthed diverticula were found in the sigmoid colon. There was no evidence of diverticular bleeding. Impression: - Non-bleeding internal hemorrhoids. - Moderate diverticulosis in the sigmoid colon. Therewas no evidence of diverticular bleeding. - No specimens collected. Recommendation: - Discharge patient to home. - High fiber diet indefinitely. - Repeat colonoscopy in 10 years for screeningpurposes. - Continue present medications. - The findings and recommendations were discussed withthe patient. - [facility] The signs and symptoms of potential delayedcomplications were discussed with the patient. Return to normal activities tomorrow. Written discharge instructionswere provided to the patient. ROOPA RIOS MD 01/22/2017 10:40:34 AM This report has been signed electronically. Number of Addenda: 0 Note Initiated On: 01/22/2017 10:13 AM Procedure Code(s): --- Professional --- 06801, Colonoscopy, flexible; diagnostic, including collection of specimen(s) by brushing or washing, when performed (separateprocedure) --- Technical --- 83650, Colonoscopy, flexible; diagnostic, including collection of specimen(s) by brushing or washing, when performed (separateprocedure) Diagnosis Code(s): --- Professional --- Z12.11, Encounter for screening for malignant neoplasm of colon K64.8, Other hemorrhoids K57.30, Diverticulosis of large intestine without perforation orabscess without bleeding --- Technical --- Z12.11, Encounter for screening for malignant neoplasm of colon K64.8, Other hemorrhoids K57.30, Diverticulosis of large intestine without perforation orabscess without bleeding CPT copyright 2016 [employer]. All rights reserved. The codes documented in this report are preliminary and upon hedge fund principal reviewmay be revised to meet current compliance requirements. [address] [place], [place] [id number] Kyaw Bryce Rao DO GI PROCEDURE ORDERABLES Edited R esult - Final * Outside LDL (01/17/2015) LDL - External 133 50 - 250 mg/ml Historical Provider LAB BLOOD ORDERABLES Gabi l Result from Last 3 Months or Most Recently Relevant to Health Maintenance Insurance [employer] [place] RE[employer] RE[employer]AC[employer] REPLACEMENT [employer] [employer] REPLACEMENT [facility] MEDICARE HMO REPLACEMENT Advance Directives For more information, please contact: [phone] (9AM - 5PM [place], Thursday-[place]) * Full Code (Presumed) (Latest Code Status on File) Date Activated Date Inactivated Comments 12/02/2017 2:55 PM 12/03/2017 6:50 PM * Full Code (Presumed) Date Activated Date Inactivated Comments 12/02/2017 6:24 AM 12/02/2017 2:55 PM Care Teams Learning Services Coordinator Relationship Specialty Start Date End Date Kyaw Rao DO [address] [place] [address] PCP - General Internal Medicine 10/05/24 Kyaw Rao DO Historical LMR Provider 01/05/17 Ronen Elizondo MD [address] [place] [address] Historical LMR Provider 01/05/17 Sana Collazo MD [address] [address] Historical LMR Provider 01/05/17 Additional Source Comments The information contained in this document represents components of the legal health record. It is not the complete legal health record.[facility]
--- OUTSIDE RECORDS SUMMARY | 2025-01-03 17:22 | XMS_ITS | Encounter Summary ---
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 file Not on file Not on file documented as of this encounter Plan of Treatment Not on file documented as of this encounter Visit Diagnoses Not on filedocumented in this encounter Care Teams Printing Press Operator Relationship Specialty Start Date End Date Kyaw Rao DO PCP - General Internal Medicine 01/22/17 10/04/24 Kyaw Rao DO [address] [place] [address] PCP - General Internal Medicine 10/05/24 Kyaw Rao DO Historical LMR Provider 01/05/17 Ronen Elizondo MD [address] [place] [address] Historical LMR Provider 01/05/17 Sana Collazo MD [address] [place] [address] Historical LMR Provider 01/05/17 documented as of this encounter Additional Source Comments The information contained in this document represents components of the legal health record. It is not the complete legal health record.[facility]
--- OUTSIDE RECORDS SUMMARY | 2025-01-03 17:22 | XMS_ITS | Encounter Summary ---
Author Organization [facility] Address [address] [address] Phone Care Team Providers Care [place] Name Role Phone Kyaw Rao DO Unavailable Ronen Elizondo MD Unavailable Maria G Alves ASSOCIATE PROFESSOR OF ANTHROPOLOGY Unavailable [phone] Sana Collazo MD Unavailable Ruma Bolivar RDCS Unavailable [email or web address] Saira Quevedo MD Unavailable [phone] Melissa Chandra ASSOCIATE PROFESSOR OF ANTHROPOLOGY Unavailable Beto Paul MD Unavailable Kyaw Rao DO Primary Care Provider [phone] Kyaw Rao DO Primary Care Provider [phone] Encounter Details Date Type Department Care Team (Latest Contact Info) Description 09/21/2020 Transcribe Orders Virtual Department [address] [place] [address] Corrie Flores PA [address] [place] [address] Low back pain, unspecified back pain laterality, unspecified chronicity, unspecified whether sciatica present (Primary Dx) Social History Tobacco Use Types [...] 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 file Not on file Not on file documented as of this encounter Plan of Treatment Not on file documented as of this encounter Visit Diagnoses Diagnosis Low back pain, unspecified back pain laterality, unspecified chronicity, unspecified whether sciatica present- Primary documented in this encounter Care Teams [place] Relationship Specialty Start Date End Date Kyaw Rao DO [email or web address] PCP - General Internal Medicine 01/22/17 10/04/24 Kyaw Rao DO [address] [place] [address] PCP - General Internal Medicine 10/05/24 Kyaw Rao DO [email or web address] Historical LMR Provider 01/05/17 Ronen Elizondo MD [address] [place] [address] [email or web address] Historical LMR Provider 01/05/17 Maria G Alves NP [address] [place] [address] [email or web address] Historical LMR Provider 01/05/17 2 Sana Collazo MD [address] [place] [address] Historical LMR Provider 01/05/17 Ruma Bolivar, ARUNA Historical LMR Provider 01/05/17 03/30/21 Saira Quevedo MD [address] [place] [address] Orthopedics & Sports Medicine, [place] [address] [email or web address] Historical LMR Provider 01/05/17 Melissa Chandra NP [address] [place] [address] Historical LMR Provider 01/05/17 2 Beto Paul MD [address] [place] [address] Historical LMR Provider 01/05/17 2 documented as of this encounter Additional Source Comments The information contained in this document represents components of the legal health record. It is not the complete legal health record.[facility]
--- OUTSIDE RECORDS SUMMARY | 2025-01-03 17:22 | XMS_ITS | Encounter Summary ---
Author Organization [facility] Address [address] [address] Phone Care Team Providers Care Retail Account Manager Name Role Phone Kyaw Rao DO Unavailable Ronen Elizondo MD Unavailable Sana Collazo MD Unavailable Kyaw Rao DO Primary Care Provider [phone] Kyaw Rao DO Primary Care Provider [phone] Encounter Details Date Type Department Care Team (Late st Contact Info) Description 04/28/2022 Transcribe Orders Virtual Department [address] [place] [address] Kyaw Rao DO [address] [place] [address] [email or web address] Breast screening (Primary Dx) Social History Tobacco Use Types [...] 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 In the absence of a worrisome palpable abnormality, annual screening mammography is recommended. BI-RADS CATEGORY: 1 - Negative. DENSITY: There are scattered fibroglandular densities. Narrative 09/04/2022 11:16 AM EDT AVAILABLE COMPARISON: 12/28/2019 through 07/12/2002 Bilateral 3-D tomosynthesis with 2-D reconstructions in the CC and MLO projection. Computer-aided detection system was utilized. No new mass, asymmetry, architectural distortion or suspicious calcifications have become apparent in either breast. Procedure Note Sreedhar Subramanian MD - 09/04/2022 AVAILABLE COMPARISON: 12/28/2019 through 07/12/2002 Bilateral 3-D tomosynthesis with 2-D reconstructions in the CC and MLOprojection. Computer-aided detection system was utilized. No new mass, asymmetry, architectural distortion or suspiciouscalcifications have become apparent in either breast. IMPRESSION: No findings suspicious for malignancy are identified. In the absence of aworrisome palpable abnormality, annual screening mammography isrecommended. BI-RADS CATEGORY: 1 - Negative. DENSITY: There are scattered fibroglandular densities. Kyaw Rao DO IMG MG EXAMS Final Result documented in this encounter Visit Diagnoses Diagnosis Breast screening- Primary Breast screening, unspecified Breast screening Breast screening, unspecified documented in this encounter Care Teams Retail Account Manager Relationship Specialty Start Date End Date Kyaw Rao DO PCP - General Internal Medicine 01/22/17 10/04/24 Kyaw Rao DO [address] [place] [address] PCP - General Internal Medicine 10/05/24 Kyaw Rao DO Historical LMR Provider 01/05/17 Ronen Elizondo MD [address] [address] [email or web address] Historical LMR Provider 01/05/17 Sana Collazo MD [address] [place] [address] [email or web address] Historical LMR Provider 01/05/17 documented as of this encounter Additional Source Comments The information contained in this document represents components of the legal health record. It is not the complete legal health record.[facility]
--- OUTSIDE RECORDS SUMMARY | 2025-01-03 17:22 | XMS_ITS | Encounter Summary ---
Author Organization [facility] Address [address] [address] Phone Care Team Providers Care Warper Creeler Name Role Phone Kyaw Rao DO Unavailable Ronen Elizondo MD Unavailable Maria G Alves BABY ATTENDANT Unavailable [phone] Sana Collazo MD Unavailable Ruma Bolivar RDCS Unavailable [email or web address] Saira Quevedo MD Unavailable [phone] Melissa Chandra BABY ATTENDANT Unavailable Beto Paul MD Unavailable Kyaw Rao DO Primary Care Provider [phone] Kyaw Rao DO Primary Care Provider [phone] Encounter Details Date Type Department Care Team (Late st Contact Info) Description 07/09/2017 Ancillary Orders Virtual Department [address] [place] [address] Kyaw Rao DO 179 [facility] [place] [address] [email or web address] Breast screening Social History Tobacco Use Types [...] MAMMOGRAM SCREENING WITH TOMOSYNTHESIS WITH CAD (BILATERAL) (10/02/2017 9:02 AM EDT) Anatomical Region Laterality Modality Breast Left, Breast Right, Breast Bilateral Bila teral Mammography 10/02/2017 9:10 AM EDT Impressions 10/02/2017 9:13 AM EDT No mammographic evidence of malignancy. BI-RADS CATEGORY: 2 - Benign finding. DENSITY: There are scattered fibroglandular densities. POS - [id number] Narrative 10/02/2017 9:13 AM EDT Standard digital full-field 2-D C view and two-plane tomographic imaging was performed and compared with multiple prior studies, most recently 02/29/2016 and 03/19/2016, with utilization of computer-aided detection. The breasts are composed of scattered fibroglandular densities. The stromal markings are essentially unchanged in overall appearance and distribution. No dominant spiculated mass, suspicious clustered microcalcifications, or focal zone of pathologic skin thickening or retraction are noted to have arisen in the interim. Scattered and loosely grouped grossly benign-appearing microcalcifications and macrocalcifications bilaterally are overall stable. Procedure Note Saskia Wilson MD - 10/02/2017 Standard digital full-field 2-D C view and two-plane tomographic imagingwas performed and compared with multiple prior studies, most [id number]/09/2016 and 03/19/2016, with utilization of computer-aided detection. The breasts are composed of scattered fibroglandular densities. Thestromal markings are essentially unchanged in overall appearance anddistribution. No dominant spiculated mass, suspicious clusteredmicrocalcifications, or focal zone of pathologic skin thickening orretraction are noted to have arisen in the interim. Scattered and looselygrouped grossly benign-appearing microcalcifications andmacrocalcifications bilaterally are overall stable. IMPRESSION: No mammographic evidence of malignancy. BI-RADS CATEGORY: 2 - Benign finding. DENSITY: There are scattered fibroglandular densities. POS - [id number] Kyaw Rao IMG MG EXAMS Final Result documented in this encounter Visit Diagnoses Diagnosis Breast screening Breast screening, unspecified Breast screening Breast screening, unspecified documented in this encounter Care Teams Warper Creeler Relationship Specialty Start Date End Date Kyaw Rao DO PCP - General Internal Medicine 01/22/17 10/04/24 Kyaw Rao DO [address] [place] [address] PCP - General Internal Medicine 10/05/24 Kyaw Rao DO [email or web address] Historical LMR Provider 01/05/17 Ronen Elizondo MD [address] [place] [address] Historical LMR Provider 01/05/17 Maria G Alves NP [address] [place] [address] [email or web address] Historical LMR Provider 01/05/17 Sana Winters MD [address] [place] [address] Historical LMR Provider 01/05/17 Ruma Bolivar, RDGABRIELA Historical LMR Provider 01/05/17 03/30/21 Saira Quevedo MD [address] [place] [address] [facility], [place] [address] [email or web address] Historical LMR Provider 01/05/17 Melissa Chandra NP [address] [place] [address] Historical LMR Provider 01/05/17 2 Beto Paul MD [address] [place] [address] Historical LMR Provider 01/05/17 2 documented as of this encounter Additional Source Comments The information contained in this document represents components of the legal health record. It is not the complete legal health record.[facility]
--- OUTSIDE RECORDS SUMMARY | 2025-01-03 17:22 | XMS_ITS | Encounter Summary ---
Author Organization [facility] Address [address] [address] Phone Care Team Providers Care Ultrasonic Seaming Machine Operator Name Role Phone Kyaw Rao DO Unavailable Ronen Elizondo MD Unavailable Maria G Alves HOME SALES CONSULTANT Unavailable [phone] Sana Collazo MD Unavailable Ruma Bolivar RDCS Unavailable [email or web address] Saira Quevedo MD Unavailable [phone] Melissa Chandra HOME SALES CONSULTANT Unavailable Beto Paul MD Unavailable [phone] Kyaw Rao DO Primary Care Provider [phone] Kyaw Rao DO Primary Care Provider [phone] Encounter Details Date Type Department Care Team (Late st Contact Info) Description 12/02/2017 Procedure Pass OR Admitting Dept - Virtual Department [address] [place] [address] Social History Tobacco Use Types Packs/Day Years [...] 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 Not on file Not on file documented as of this encounter Plan of Treatment Not on file documented as of this encounter Visit Diagnoses Not on filedocumented in this encounter Care Teams Ultrasonic Seaming Machine Operator Relationship Specialty Start Date End Date Kyaw Rao DO PCP - General Internal Medicine 01/22/17 10/04/24 Kyaw Rao DO [address] [place] [address] PCP - General Internal Medicine 10/05/24 Kyaw Rao DO Historical LMR Provider 01/05/17 Ronen Elizondo MD [address] [address] Historical LMR Provider 01/05/17 Maria G Alves NP [address] [place] [address] [email or web address] Historical LMR Provider 01/05/17 2 Sana Collazo MD [address] [address] Historical LMR Provider 01/05/17 Ruma Bolivar, ARUNA Historical LMR Provider 01/05/17 03/30/21 Saira Quevedo MD [address] [place] [address] [facility] [place] [address] [email or web address] Historical LMR Provider 01/05/17 Melissa Chandra NP [address] [place] [address] Historical LMR Provider 01/05/17 2 Beto Paul MD [address] [place] [address] Historical LMR Provider 01/05/17 2 documented as of this encounter Additional Source Comments The information contained in this document represents components of the legal health record. It is not the complete legal health record.[facility]
[2025-01-03 18:07] LABS: MANUAL DIFF FLAG NO
[2025-01-03 18:25] LABS: Appearance Urine Clear; Glucose Urine UA Negative (Negative); PH 6.5 (5.0-9.0); Specific Gravity - Urine <= 1.005 (1.005-1.025); UMIC TRIGGER UACC YES
[2025-01-03 18:29] LABS: UACC Culture Trigger YES
[2025-01-03 18:31] LABS: Alanine Aminotransferase 26 U/L (0-31); Albumin Level 4.4 g/dL (3.5-5.0); Alkaline Phosphatase 80 U/L (39-117); Anion Gap 13 (12-20); Aspartate Amino Transferase 30 U/L (5-31); Blood Urea Nitrogen 14 mg/dL (9-16); Calcium 10.0 mg/dL (8.4-10.2); Carbon Dioxide 27 mmol/L (22-29); Chloride 100 mmol/L (96-108); Estimated Glomerular Filt Rate > 60; Potassium 3.8 mmol/L (3.3-5.1); Sodium 136 mmol/L (135-145); Total Protein 7.7 g/dL (6.5-8.0)
[2025-01-03 18:35] LABS: Hematocrit 40.9 % (37.0-47.0); Hemoglobin 13.2 g/dl (12.0-16.0); Imm Gran Abs Auto 0.02 X10*3/uL (0.00-0.03); Imm Gran Pct Auto 0.2 % (0.0-0.4); Lymphocytes Absolute Auto 1.5 X10*3/uL (1.2-4.9); Mean Corpuscular HGB Conc 32.3 g/dl (31.0-35.0); Mean Corpuscular Hemoglobin 29.2 pg (27.0-33.0); Mean Corpuscular Volume 90.5 fL (80.0-98.0); NRBC Abs Auto 0.000 X10*3/uL (0.0-0.012); NRBC Pct Auto 0.0 /100WBC (0.0-0.2); Platelet Count 244 X10*3/uL (160-400); Red Blood Count 4.52 X10*6/uL (4.20-5.50); White Blood Count 9.4 X10*3/uL (4.8-10.8)
== END 2025-01-03 14:28 | disposition home or self-care (01) ==
LOC: HO.MANLDS 14:27
PROVIDERS: Visit Provider Physician Assistant
DX: K52.9 Noninfective gastroenteritis and colitis, unspecified (principal); R82.90 Unspecified abnormal findings in urine
CPT/HCPCS: 36415; 80053; 81001; 85025; 85652; 86140; 87086

== ENCOUNTER 2025-01-09 10:48 | Outpatient (REF) | payer MEDICARE, SELFPAY ==
[2025-01-09 13:19] LABS: Appearance Urine Clear; Glucose Urine UA Negative (Negative); PH 7.0 (5.0-9.0); Specific Gravity - Urine <= 1.005 (1.005-1.025); UMIC TRIGGER UACC YES
[2025-01-09 13:36] LABS: UACC Culture Trigger YES
== END 2025-01-09 10:49 | disposition home or self-care (01) ==
LOC: HO.MANLDS 10:48
PROVIDERS: Visit Provider Internal Medicine
DX: R35.0 Frequency of micturition (principal)
CPT/HCPCS: 81001; 81003; 87086

== ENCOUNTER 2025-02-01 09:35 | Outpatient (REF) | payer MEDICARE, SELFPAY ==
--- OUTSIDE RECORDS SUMMARY | 2025-02-01 10:51 | XMS_ITS | Encounter Summary ---
Author Organization [facility] Address [address] [address] Phone Care Team Providers Care Hostess Name Role Phone Kyaw Rao DO Unavailable Ronen Elizondo MD Unavailable Maria G Alves ROSS LIFT OPERATOR Unavailable [phone] Sana Collazo MD Unavailable Ruma Bolivar RDCS Unavailable [email or web address] Saira Quevedo MD Unavailable [phone] Melissa Chandra ROSS LIFT OPERATOR Unavailable Beto Paul MD Unavailable Kyaw Rao DO Primary Care Provider [phone] Kyaw Rao DO Primary Care Provider [phone] Encounter Details Date Type Department Care Team (Late st Contact Info) Description 07/09/2017 Ancillary Orders Virtual Department 30 [place] [address] Radha Mccallum PA-C [address] [place] [address] [email or web address] Estrogen deficiency Social History Tobacco Use Types [...] represents a -5.4% statistically significant decrease BMD [id number]. Total bone mineral density in the left [...] failure documented in this encounter Care Teams Hostess Relationship Specialty Start Date End Date Kyaw Rao DO [email or web address] PCP - General Internal Medicine 01/22/17 10/04/24 Kyaw Rao DO [address] [place] [address] PCP - General Internal Medicine 10/05/24 Kyaw Rao DO Historical LMR Provider 01/05/17 Ronen Elizondo MD [address] [place] [address] Historical LMR Provider 01/05/17 Maria G Alves NP [address] [place] [address] [email or web address] Historical LMR Provider 01/05/17 2 Sana Collazo MD [address] [facility] [address] [place] [address] Historical LMR Provider 01/05/17 Ruma Bolivar, [facility] Historical LMR Provider 01/05/17 03/30/21 Saira Quevedo MD [address] [place] [address] [facility], [place] [address] Historical LMR Provider 01/05/17 Melissa Chandra NP [address] [place] [address] Historical LMR Provider 01/05/17 2 Beto Paul MD [address] [place] [address] Historical LMR Provider 01/05/17 2 documented as of this encounter Additional Source Comments The information contained in this document represents components of the legal health record. It is not the complete legal health record.[facility]
--- OUTSIDE RECORDS SUMMARY | 2025-02-01 10:51 | XMS_ITS | Encounter Summary ---
Author Organization [facility] Address [address] [address] Phone Care Team Providers Care Pediatrics Teacher Name Role Phone Kyaw Rao DO Unavailable Ronen Elizondo MD Unavailable Maria G Alves SPIRITUAL MINISTER Unavailable [phone] Sana Collazo MD Unavailable Ruma Bolivar RDCS Unavailable [email or web address] Saira Quevedo MD Unavailable [phone] Melissa Chandra SPIRITUAL MINISTER Unavailable Beto Paul MD Unavailable Kyaw Rao DO Primary Care Provider [phone] Kyaw Rao DO Primary Care Provider [phone] Encounter Details Date Type Department Care Team (Late st Contact Info) Description 10/25/2019 Ancillary Orders Virtual Department [address] [place] [address] Kyaw Rao DO 179 [facility] [place] [address] [place] [address] [email or web address] Breast screening Social History Tobacco Use Types [...] 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 on file Not [...] unspecified documented in this encounter Care Teams Pediatrics Teacher Relationship Specialty Start Date End Date Kyaw Rao DO PCP - General Internal Medicine 01/22/17 10/04/24 Kyaw Rao DO 179 [place] [address] PCP - General Internal Medicine 10/05/24 Kyaw Rao DO Historical LMR Provider 01/05/17 Ronen Elizondo MD [address] [place] [address] Historical LMR Provider 01/05/17 Maria G Alves NP 21 [place] [address] [email or web address] Historical LMR Provider 01/05/17 2 Sana Collazo MD [address] [place] [address] Historical LMR Provider 01/05/17 Ruma Bolivar, RDCS Historical LMR Provider 01/05/17 03/30/21 Saira Quevedo MD [address] [place] [address] [facility], [place] [address] Historical LMR Provider 01/05/17 Melissa Chandra NP [address] [place] [address] Historical LMR Provider 01/05/17 2 Beto Paul MD [address] [place] [address] Historical LMR Provider 01/05/17 2 documented as of this encounter Additional Source Comments The information contained in this document represents components of the legal health record. It is not the complete legal health record.[facility]
--- OUTSIDE RECORDS SUMMARY | 2025-02-01 10:51 | XMS_ITS | Encounter Summary ---
Author Organization [facility] Address [address] [address] Phone Care Team Providers Care Stamps Or Coins Salesperson Name Role Phone Kyaw Rao DO Unavailable Ronen Elizondo MD Unavailable Maria G Alvse SUPERINTENDENT RECREATION Unavailable [phone] Sana Collazo MD Unavailable Ruma Bolivar RDCS Unavailable [email or web address] Saira Quevedo MD Unavailable [phone] Melissa Chandra SUPERINTENDENT RECREATION Unavailable Beto Paul MD Unavailable Kyaw Rao DO Primary Care Provider [phone] Kyaw Rao DO Primary Care Provider [phone] Encounter Details Date Type Department Care Team (Latest Contact Info) Description 09/21/2020 Transcribe Orders Virtual Department 30 [place] [address] Corrie Flores PA 6 [facility] [place] [address] Low back pain, unspecified back pain laterality, [...] 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 Not on file Not on file documented as of this encounter Plan of Treatment Not on file documented as of this encounter Visit Diagnoses Diagnosis Low back pain, unspecified back pain laterality, unspecified chronicity, unspecified whether sciatica present- Primary documented in this encounter Care Teams Stamps Or Coins Salesperson Relationship Specialty Start Date End Date Kyaw Rao DO [email or web address] PCP - General Internal Medicine 01/22/17 10/04/24 Kywa Rao DO [address] [place] [address] PCP - General Internal Medicine 10/05/24 Kyaw Rao DO [email or web address] Historical LMR Provider 01/05/17 Ronen Elizondo MD [address] [place] [address] [email or web address] Historical LMR Provider 01/05/17 Maria G Alves NP [address] [place] [address] [email or web address] Historical LMR Provider 01/05/17 2 Sana Collazo MD [address] [place] [address] Historical LMR Provider 01/05/17 Ruma Bolivar, ARUNA Historical LMR Provider 01/05/17 03/30/21 Saira Quevedo MD [address] [place] [address] [facility], [place] [address] [email or web address] Historical LMR Provider 01/05/17 Melissa Chandra NP [address] [place] [address] Historical LMR Provider 01/05/17 2 Beto Paul MD [address] [place] [address] Historical LMR Provider 01/05/17 2 documented as of this encounter Additional Source Comments The information contained in this document represents components of the legal health record. It is not the complete legal health record.[facility]
--- OUTSIDE RECORDS SUMMARY | 2025-02-01 10:51 | XMS_ITS | Encounter Summary ---
Author Organization [facility] Address [address] [address] Phone Care Team Providers Care Records Management Specialist Name Role Phone Kyaw Rao DO Unavailable Ronen Elizondo MD Unavailable Maria G Alves STEAM STATION SUPERVISOR Unavailable [phone] Sana Collazo MD Unavailable Ruma Bolivar RDCS Unavailable [email or web address] Saira Quevedo MD Unavailable [phone] Melissa Chandra STEAM STATION SUPERVISOR Unavailable Beto Paul MD Unavailable Kyaw Rao DO Primary Care Provider [phone] Kyaw Rao DO Primary Care Provider [phone] Encounter Details Date Type Department Care Team (Late st Contact Info) Description 07/09/2017 Ancillary Orders Virtual Department [address] [place] [address] Kyaw Rao DO 179 [facility] [place] [address] [place] [address] [email or web address] Breast screening Social History Tobacco Use Types [...] There are scattered fibroglandular densities. POS - [id number] Narrative 10/02/2017 9:13 AM EDT Standard digital [...] and compared with multiple prior studies, most [email or web address]/09/2016 and 03/19/2016, with utilization of computer-aided detection. [...] There are scattered fibroglandular densities. POS - [id number] Kyaw Rao IMG MG EXAMS Final Result documented in this encounter Visit Diagnoses Diagnosis Breast screening Breast screening, unspecified Breast screening Breast screening, unspecified documented in this encounter Care Teams Records Management Specialist Relationship Specialty Start Date End Date Kyaw Rao DO PCP - General Internal Medicine 01/22/17 10/04/24 Kyaw Rao DO [address] [place] [address] PCP - General Internal Medicine 10/05/24 Kyaw Rao DO [email or web address] Historical LMR Provider 01/05/17 Ronen Elizondo MD [address] [place] [address] Historical LMR Provider 01/05/17 Maria G Alves NP [address] [place] [address] [email or web address] Historical LMR Provider 01/05/17 Sana Winters MD [address] [place] [address] Historical LMR Provider 01/05/17 Ruma Bolivar, RDGABRIELA Historical LMR Provider 01/05/17 03/30/21 Saira Quevedo MD [address] [place] [address] [facility], [place] [address] [email or web address] Historical LMR Provider 01/05/17 Melissa Chandra NP [address] [place] [address] Historical LMR Provider 01/05/17 2 Beto Paul MD [address] [place] [address] Historical LMR Provider 01/05/17 2 documented as of this encounter Additional Source Comments The information contained in this document represents components of the legal health record. It is not the complete legal health record.[facility]
--- OUTSIDE RECORDS SUMMARY | 2025-02-01 10:51 | XMS_ITS | Encounter Summary ---
Author Organization [facility] Address [address] [address] Phone Care Team Providers Care Computer Network Engineer Name Role Phone Kyaw Rao DO Unavailable Ronen Elizondo MD Unavailable Maria G Alves SENIOR BUYER Unavailable [phone] Sana Collazo MD Unavailable Ruma Bolivar RDCS Unavailable [email or web address] Saira Quevedo MD Unavailable [phone] Melissa Chandra SENIOR BUYER Unavailable Beto Paul MD Unavailable Kyaw Rao DO Primary Care Provider [phone] Kyaw Rao DO Primary Care Provider [phone] Encounter Details Date Type Department Care Team (Late st Contact Info) Description 11/28/2019 Procedure Pass [facility], [address] [address] Social History Tobacco Use Types Packs/Day Years [...] 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 on file Not on file documented as of this encounter Plan of Treatment Not on file documented as of this encounter Visit Diagnoses Not on filedocumented in this encounter Care Teams Computer Network Engineer Relationship Specialty Start Date End Date Kyaw Rao DO PCP - General Internal Medicine 01/22/17 10/04/24 Kyaw Rao DO [address] [place] [address] PCP - General Internal Medicine 10/05/24 Kyaw Rao DO Historical LMR Provider 01/05/17 Ronen Elizondo MD [address] [address] Historical LMR Provider 01/05/17 Maria G Alves NP [address] [place] [address] [email or web address] Historical LMR Provider 01/05/17 2 Sana Collazo MD [address] [address] Historical LMR Provider 01/05/17 Ruma Bolivar, ARUNA Historical LMR Provider 01/05/17 03/30/21 Saira Quevedo MD [address] [place] [address] [facility] [place] [address] [email or web address] Historical LMR Provider 01/05/17 Melissa Chandra NP [address] [place] [address] Historical LMR Provider 01/05/17 2 Beto Paul MD [address] [place] [address] Historical LMR Provider 01/05/17 2 documented as of this encounter Additional Source Comments The information contained in this document represents components of the legal health record. It is not the complete legal health record.[facility]
--- OUTSIDE RECORDS SUMMARY | 2025-02-01 10:51 | XMS_ITS | Encounter Summary ---
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 Not on file documented as of this encounter Plan of Treatment Not on file documented as of this encounter Visit Diagnoses Not on filedocumented in this encounter Care Teams Ediphone Operator Relationship Specialty Start Date End Date Kyaw Rao DO PCP - General Internal Medicine 01/22/17 10/04/24 Kyaw Rao DO [address] [place] [address] PCP - General Internal Medicine 10/05/24 Kyaw Rao DO Historical LMR Provider 01/05/17 Ronen Elizondo MD [address] [place] [address] Historical LMR Provider 01/05/17 Sana Collazo MD [address] [place] [address] Historical LMR Provider 01/05/17 documented as of this encounter Additional Source Comments The information contained in this document represents components of the legal health record. It is not the complete legal health record.[facility]
--- OUTSIDE RECORDS SUMMARY | 2025-02-01 10:51 | XMS_ITS | Encounter Summary ---
Author Organization [facility] Address [address] [address] Phone Care Team Providers Care Operations Section Manager Name Role Phone Kyaw Rao DO Unavailable Ronen Elizondo MD Unavailable Maria G Alves CHICKEN PICKER Unavailable [phone] Sana Collazo MD Unavailable Ruma Bolivar RDCS Unavailable [email or web address] Saira Quevedo MD Unavailable [phone] Melissa Chandra CHICKEN PICKER Unavailable Beto Paul MD Unavailable Kyaw Rao DO Primary Care Provider [phone] Kyaw Rao DO Primary Care Provider [phone] Encounter Details Date Type Department Care Team (Late st Contact Info) Description 01/22/2017 Procedure Pass [facility] Admitting Dept Virtual Department [address] [place] [address] Social History Tobacco Use Types Packs/Day Years [...] on filedocumented in this encounter Care Teams Operations Section Manager Relationship Specialty Start Date End Date Kyaw Rao DO PCP - General Internal Medicine 01/22/17 10/04/24 Kyaw Rao DO [address] [place] [address] PCP - General Internal Medicine 10/05/24 Kyaw Rao DO Historical LMR Provider 01/05/17 Ronen Elizondo MD [address] [place] [address] Historical LMR Provider 01/05/17 Maria G Alves NP [address] [place] [address] [email or web address] Historical LMR Provider 01/05/17 2 Sana Collazo MD [address] [address] Historical LMR Provider 01/05/17 Ruma Bolivar RDCS Historical LMR Provider 01/05/17 03/30/21 Saira Quevedo MD [address] [place] [address] [facility], [place] [address] [email or web address] Historical LMR Provider 01/05/17 Melissa Chandra NP [address] [place] [address] Historical LMR Provider 01/05/17 2 Beto Paul MD [address] [place] [address] Historical LMR Provider 01/05/17 2 documented as of this encounter Additional Source Comments The information contained in this document represents components of the legal health record. It is not the complete legal health record.[facility]
--- OUTSIDE RECORDS SUMMARY | 2025-02-01 10:53 | XMS_ITS | Encounter Summary ---
Author Organization [facility] Address [address] [address] Phone Care Team Providers Care Car Builder Name Role Phone Kyaw Rao DO Unavailable Ronen Elizondo MD Unavailable Maria G Alves UNIT CONTROL CLERK Unavailable [phone] Sana Collazo MD Unavailable Ruma Bolivar RDCS Unavailable [email or web address] Saira Quevedo MD Unavailable [phone] Melissa Chandra UNIT CONTROL CLERK Unavailable Beto Paul MD Unavailable [phone] Kyaw Rao DO Primary Care Provider [phone] Kyaw Rao DO Primary Care Provider [phone] Encounter Details Date Type Department Care Team (Late st Contact Info) Description 12/02/2017 Procedure Pass [place] Admitting Dept - Virtual Department [address] [place] [address] Social History Tobacco Use Types Packs/Day Years [...] 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 on file Not on file documented as of this encounter Plan of Treatment Not on file documented as of this encounter Visit Diagnoses Not on filedocumented in this encounter Care Teams Car Builder Relationship Specialty Start Date End Date Kyaw Rao DO PCP - General Internal Medicine 01/22/17 10/04/24 Kyaw Rao DO [address] [place] [address] PCP - General Internal Medicine 10/05/24 Kyaw Rao DO Historical LMR Provider 01/05/17 Ronen Elizondo MD [address] [address] Historical LMR Provider 01/05/17 Maria G Alves NP [address] [place] [address] [email or web address] Historical LMR Provider 01/05/17 2 Sana Collazo MD [address] [address] Historical LMR Provider 01/05/17 Ruma Bolivar, ARUNA Historical LMR Provider 01/05/17 03/30/21 Saira Quevedo MD [address] [place] [address] [facility] [place] [address] [email or web address] Historical LMR Provider 01/05/17 Melissa Chandra NP [address] [place] [address] Historical LMR Provider 01/05/17 2 Beto Paul MD [address] [place] [address] Historical LMR Provider 01/05/17 2 documented as of this encounter Additional Source Comments The information contained in this document represents components of the legal health record. It is not the complete legal health record.[facility]
--- OUTSIDE RECORDS SUMMARY | 2025-02-01 10:53 | XMS_ITS | Encounter Summary ---
Author Organization [facility] Address [address] [address] Phone Care Team Providers Care Psychotherapist Name Role Phone Kyaw Rao DO Unavailable Ronen Elizondo MD Unavailable Sana Collazo MD Unavailable Kyaw Rao DO Primary Care Provider Kyaw Rao DO Primary Care Provider [phone] Encounter Details Date Type Department Care Team (Late st Contact Info) Description 04/28/2022 Transcribe Orders Virtual Department [address] [place] [address] Kyaw Rao DO [address] [place] [address] [email or web address] Breast screening (Primary Dx) Social History Tobacco [...] 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 Not on file Not [...] unspecified documented in this encounter Care Teams Psychotherapist Relationship Specialty Start Date End Date Kyaw Rao DO PCP - General Internal Medicine 01/22/17 10/04/24 Kyaw Rao DO [address] [place] [address] PCP - General Internal Medicine 10/05/24 Kyaw Rao DO Historical LMR Provider 01/05/17 Ronen Elizondo MD [address] [address] [email or web address] Historical LMR Provider 01/05/17 Sana Collazo MD [address] [place] [address] [email or web address] Historical LMR Provider 01/05/17 documented as of this encounter Additional Source Comments The information contained in this document represents components of the legal health record. It is not the complete legal health record.[facility]
--- OUTSIDE RECORDS SUMMARY | 2025-02-01 10:53 | XMS_ITS | Encounter Summary ---
Author Organization [facility] Address [address] [address] Phone Care Team Providers Care Redevelopment Manager Name Role Phone Kyaw Rao DO Unavailable Ronen Elizondo MD Unavailable Sana Collazo MD Unavailable Maira, Kyaw Wu DO Primary Care Provider [phone] Kyaw Rao DO Primary Care Provider [phone] Reason for Referral * MRI/CAT Scan - Closed Specialty Diagnoses / Procedures Referred By Hill james Referred To Contact Radiology Diagnoses Unspecified fall, initial encounter Procedures CT Chest CHG DIAGNOSTIC COMPUTED TOMOGRAPHY THORAX W/O CNTRST Corrie Flores PA [address] [facility] [place] [address] Phone: tel: fax: Referral ID Status Reason Start Date Expiration Date Visits Re quested Visits Authorized [id number] Closed 09/13/2024 11/12/2024 1 1 * MRI/CAT Scan - Closed Specialty Diagnoses / Procedures Referred By Hill james Referred To Contact Radiology Diagnoses Unspecified fall, initial encounter Procedures MRI Shoulder (Right) CHG MRI, JOINT UPPER EXTREM Corrie Flores PA [address] [facility] [place] [address] Phone: tel: fax: Referral ID Status Reason Start Date Expiration Date Visits Re quested Visits Authorized [id number] Closed 09/12/2024 11/11/2024 1 1 Encounter Details Date Type Department Care Team (Latest Contact Info) Description 09/13/2024 Transcribe Orders Virtual Department [address] [place] [address] Corrie Flores PA [address] [facility] [place] [address] Unspecified fall, initial encounter (Primary Dx) Social [...] 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 Somewhat limited labral assessment given thqnn-pq-nztu and cuvnlu-bb-ztoym ratio. The labrum is slightly diminutive with some minor intrasubstance signal within the superior labrum. GLENOHUMERAL JOINT: Mild degenerative changes. No marrow edema or joint effusion. PERIARTICULAR SOFT TISSUES: Otherwise unremarkable. Procedure Note Dev Smith MD - 10/08/2024 MRI SHOULDER WITHOUT CONTRAST (RIGHT) Referring clinician's provided indication for this examination in [facility]:Outside Radiology Order; fall HISTORY: Right shoulder pain. [...] nonarthrographic labral assessment. Somewhatlimited labral assessment given nocwx-ai-degn and rmzwze-jp-srwof ratio.The labrum is slightly diminutive with some [...] clinician's provided indication for this examination in [facility]: Outside Radiology Order; fall TECHNIQUE: Multidetector CT [...] clinician's provided indication for this examination in [facility]:Outside Radiology Order; fall TECHNIQUE: Multidetector CT of [...] encounter documented in this encounter Care Teams Redevelopment Manager Relationship Specialty Start Date End Date Kyaw Rao DO PCP - General Internal Medicine 01/22/17 10/04/24 Kyaw Rao DO [address] [place] [address] PCP - General Internal Medicine 10/05/24 Kyaw Rao DO Historical LMR Provider 01/05/17 Ronen Elizondo MD [address] [place] [address] Historical LMR Provider 01/05/17 Sana Collazo MD [address] [place] [address] Historical LMR Provider 01/05/17 documented as of this encounter Additional Source Comments The information contained in this document represents components of the legal health record. It is not the complete legal health record.[facility]
--- OUTSIDE RECORDS SUMMARY | 2025-02-01 10:53 | XMS_ITS | Encounter Summary ---
Author Organization 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 Not on file Not on file documented as of this encounter Plan of Treatment Not on file documented as of this encounter Visit Diagnoses Not on filedocumented in this encounter Care Teams News Video Editor Relationship Specialty Start Date End Date Kyaw Rao DO PCP - General Internal Medicine 01/22/17 10/04/24 Kyaw Rao DO [address] [place] [address] PCP - General Internal Medicine 10/05/24 Kyaw Rao DO Historical LMR Provider 01/05/17 Ronen Elizondo MD [address] [place] [address] Historical LMR Provider 01/05/17 Sana Collazo MD [address] [place] [address] Historical LMR Provider 01/05/17 documented as of this encounter Additional Source Comments The information contained in this document represents components of the legal health record. It is not the complete legal health record.[facility]
--- OUTSIDE RECORDS SUMMARY | 2025-02-01 10:53 | XMS_ITS | Encounter Summary ---
Author Organization 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 on file Not on file documented as of this encounter Plan of Treatment Not on file documented as of this encounter Visit Diagnoses Not on filedocumented in this encounter Care Teams Finishing Trimmer Relationship Specialty Start Date End Date Kyaw Rao DO PCP - General Internal Medicine 01/22/17 10/04/24 Kyaw Rao DO [address] [place] [address] PCP - General Internal Medicine 10/05/24 Kyaw Rao DO Historical LMR Provider 01/05/17 Ronen Elizondo MD [address] [place] [address] Historical LMR Provider 01/05/17 Sana Collazo MD [address] [place] [address] Historical LMR Provider 01/05/17 documented as of this encounter Additional Source Comments The information contained in this document represents components of the legal health record. It is not the complete legal health record.[facility]
--- OUTSIDE RECORDS SUMMARY | 2025-02-01 10:53 | XMS_ITS | Encounter Summary ---
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 Not on file Not on file documented as of this encounter Plan of Treatment Not on file documented as of this encounter Visit Diagnoses Not on filedocumented in this encounter Care Teams Office Technician Relationship Specialty Start Date End Date Kyaw Rao DO PCP - General Internal Medicine 01/22/17 10/04/24 Kyaw Rao DO [address] [place] [address] PCP - General Internal Medicine 10/05/24 Kyaw Rao DO Historical LMR Provider 01/05/17 Ronen Elizondo MD [address] [place] [address] Historical LMR Provider 01/05/17 Sana Collazo MD [address] [place] [address] Historical LMR Provider 01/05/17 documented as of this encounter Additional Source Comments The information contained in this document represents components of the legal health record. It is not the complete legal health record.[facility]
--- OUTSIDE RECORDS SUMMARY | 2025-02-01 10:53 | XMS_ITS | Clinical Summary ---
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 Not on file Not [...] ZOSTER VACCINES (3 of 3) 12/30/2021 11/04/2021, 12/0 03/2013 CREATININE LEVEL 05/07/2022 05/07/2021 POTASSIUM LEVEL 05/07/2022 05/07/2021 BLOOD PRESSURE 12/17/2023 06/16/2023 INFLUENZA VACCINE (#1) 2024 , 01/21/2022, 01/08/2022, Additional history exists COVID-19 VACCINE ( season) 2024 01/22/2023, 02/03/2022, 12/23/2020, Additional history exists RSV VACCINE (1 - 1-dose 75+ series) 2024 Adult Td,Tdap Booster 01/10/2025 01/10/2015 MAMMOGRAM 08/16/2025 08/16/2024, 08/21, 12/28/2019, Additional history exists COLONOSCOPY 01/22/2027 01/22/2017 [...] this topic Medical Devices Implanted Type Area Black Off Worker Device Identifier Shelf Expiration Date Model / Serial / Lot System Halo Obtryx 2 Transobturator Sling - [id number] Implanted:Qty: 1 on 12/02/2017 by Ronen Elizondo [facility] [employer] [facility] 09/10/2020 [id number] / / [id number] Description:transobturator s ling Procedures Procedure Name Priority Date/Time Associated Diagnosis Comments BI MAMMOGRAM SCREENING WITH TOMOSYNTHESIS WITH CAD (BILATERAL) Routine 08/16/2024 8:36 AM EDT Encounter for gynecological examination without abnormal finding BASIC METABOLIC PANEL (BMP) STAT 05/07/2021 10:15 PM EST BD DXA AXIAL (SPINE) WITH HIP Routine 10/02/2017 9:15 AM EDT Estrogen deficiency ENDOSCOPY, COLON 01/22/2017 10:1 3 AM EDT OUTSIDE LDL Routine 01/17/2015 from Last 3 Months or Most Recently Relevant to Health Maintenance Results * BI MAMMOGRAM SCREENING WITH TOMOSYNTHESIS [...] be notified of the results and recommendations. Sana Collazo MD IMG MG EXAMS Final Result * (ABNORMAL) Basic metabolic panel (05/07/2021 10:15 PM EST) SODIUM 141 133 - 146 mmol/L [facility] CHLORIDE 104 96 - 108 mmol/L [facility] POTASSIUM 3.8 3.3 - 5.1 mmol/L [facility] CO2 28 21 - 35 mmol/L [facility] BUN 18 6 - 19 mg/dL [facility] CREATININE 0.60 0.5 - 1.5 mg/dL [facility] GLUCOSE 109(H) 70 - 99 mg/dL [facility] CALCIUM 9.4 8.4 - 10.3 mg/dL [facility] EGFR 96 >59 mL/min/1.7 3m2 [facility] Comment:Estimated glomerular filtration rate calculated using the CKD-EPI refit equation. ANION GAP 13 10 - 20 mmol/L [facility] Blood 05/07/2021 10:1 5 PM EST 05/07/2021 10:26 PM EST us Arvind Hong DO LAB BLOOD BKR ORDERABLES Gabi l Result Performing Organization Address City/State/[facility] Co de Phone Number [facility] [address] [place] [address] * BD DXA AXIAL (SPINE) WITH HIP [...] represents a -5.4% statistically significant decrease BMD [id number]. Total bone mineral density in the left [...] (01/22/2017 10:13 AM EDT) Narrative Transcriptions Roopa Duong MD, [place] - 01/22/2017 10:13 AM EDT Patient Name: Barbara Lang Attending MD:: ROOPA DUONG MD Procedure Date: 01/22/2017 10:13 AM Date of : 1950 Age: 66 Admit Type: Outpatient Gender: Female Room: [place] [address] Exam Type: Colonoscopy Indications: Screening for colorectal [...] monitored continuously. The Olympus adult variable colonoscope [id number] #4 was introduced through the anus and [...] - [email or web address] The signs and symptoms of potential delayedcomplications were discussed with the patient. Return to normal activities tomorrow. Written discharge instructionswere provided to the patient. ROOPA DUONG MD 01/22/2017 10:40:34 AM This report has been signed electronically. Number of Addenda: 0 Note Initiated On: 01/22/2017 10:13 AM Procedure Code(s): --- Professional --- 86746, Colonoscopy, flexible; diagnostic, including collection of specimen(s) by brushing or washing, when performed (separateprocedure) --- Technical --- 34414, Colonoscopy, flexible; diagnostic, including collection of specimen(s) [...] perforation orabscess without bleeding CPT copyright 2016 [employer]. All rights reserved. The codes documented in this report are preliminary and upon rn utilization management um reviewmay be revised to meet current compliance requirements. [address] [place] [address] Kyaw A Bigda DO GI PROCEDURE ORDERABLES Edited R esult - Final * Outside LDL (01/17/2015) LDL - External 133 50 - 250 mg/ml Historical Provider LAB BLOOD ORDERABLES Gabi l Result from Last 3 Months or Most Recently Relevant to Health Maintenance Insurance [employer] H[employer] RE[employer]ACEMENT [employer] H[employer] REPLACEMENT [facility] MEDICARE HMO REPLACEMENT [employer] RE[employer]ACEMENT [employer] [place] H[employer] REPLACEMENT [facility] MEDICARE HMO REPLACEMENT [employer] REPLACEMENT [employer] REPLACEMENT [employer]ACEMENT Advance Directives For more information, please contact: [phone] (9AM - 5PM [place], Thursday-Thursday) * Full Code (Presumed) (Latest Code Status on File) Date Activated Date Inactivated Comments 12/02/2017 2:55 PM 12/03/2017 6:50 PM * Full Code (Presumed) Date Activated Date Inactivated Comments 12/02/2017 6:24 AM 12/02/2017 2:55 PM Care Teams Ethnic Origins Teacher Relationship Specialty Start Date End Date Kyaw Rao DO [address] [place] [address] PCP - General Internal Medicine 10/05/24 Kyaw Rao DO Historical LMR Provider 01/05/17 Ronen Elizondo MD [address] [place] [address] Historical LMR Provider 01/05/17 Sana Collazo MD [address] [place] [address] Historical LMR Provider 01/05/17 Additional Source Comments The information contained in this document represents components of the legal health record. It is not the complete legal health record.[facility]
--- OUTSIDE RECORDS SUMMARY | 2025-02-01 10:53 | XMS_ITS | Encounter Summary ---
Author Organization [facility] Address [address] [address] Phone Care Team Providers Care Hose Builder Name Role Phone Kyaw Rao DO Unavailable Ronen Elizondo MD Unavailable Sana Collazo MD Unavailable Kyaw Rao DO Primary Care Provider [phone] Kyaw Rao DO Primary Care Provider [phone] Encounter Details Date Type Department Care Team (Late st Contact Info) Description 05/18/2023 Transcribe Orders [facility] [address] [place] [address] Kyaw Rao DO [address] [facility] [address] [place] [address] Social History Tobacco Use Types Packs/Day Years [...] 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 on file Not on file documented as of this encounter Plan of Treatment Not on file documented as of this encounter Visit Diagnoses Not on filedocumented in this encounter Care Teams Hose Builder Relationship Specialty Start Date End Date Kyaw Rao DO PCP - General Internal Medicine 01/22/17 10/04/24 Kyaw Rao DO [address] [place] [id number] PCP - General Internal Medicine 10/05/24 Kyaw Rao DO Historical LMR Provider 01/05/17 Ronen Elizondo MD [address] [place] [id number] Historical LMR Provider 01/05/17 Sana Collazo MD [address] [place] [id number] Historical LMR Provider 01/05/17 documented as of this encounter Additional Source Comments The information contained in this document represents components of the legal health record. It is not the complete legal health record.[facility]
[2025-02-01 13:04] LABS: MANUAL DIFF FLAG NO
[2025-02-01 13:17] LABS: Hematocrit 41.4 % (37.0-47.0); Hemoglobin 13.2 g/dl (12.0-16.0); Imm Gran Abs Auto 0.01 X10*3/uL (0.00-0.03); Imm Gran Pct Auto 0.2 % (0.0-0.4); Lymphocytes Absolute Auto 1.3 X10*3/uL (1.2-4.9); Mean Corpuscular HGB Conc 31.9 g/dl (31.0-35.0); Mean Corpuscular Hemoglobin 29.6 pg (27.0-33.0); Mean Corpuscular Volume 92.8 fL (80.0-98.0); NRBC Abs Auto 0.000 X10*3/uL (0.0-0.012); NRBC Pct Auto 0.0 /100WBC (0.0-0.2); Platelet Count 230 X10*3/uL (160-400); Red Blood Count 4.46 X10*6/uL (4.20-5.50); White Blood Count 5.3 X10*3/uL (4.8-10.8)
[2025-02-01 13:45] LABS: Alanine Aminotransferase 27 U/L (0-31); Albumin Level 4.6 g/dL (3.5-5.0); Alkaline Phosphatase 75 U/L (39-117); Anion Gap 13 (12-20); Aspartate Amino Transferase 28 U/L (5-31); Blood Urea Nitrogen 13 mg/dL (9-16); Calcium 9.5 mg/dL (8.4-10.2); Carbon Dioxide 26 mmol/L (22-29); Chloride 104 mmol/L (96-108); Cholesterol 167 mg/dL (<200); Estimated Glomerular Filt Rate > 60; HDL Cholesterol 60 mg/dL (>40); Potassium 4.5 mmol/L (3.3-5.1); Sodium 138 mmol/L (135-145); Total Protein 7.4 g/dL (6.5-8.0); Triglycerides 84 mg/dL (<150)
== END 2025-02-01 09:36 | disposition home or self-care (01) ==
LOC: HO.MANLDS 09:35
PROVIDERS: Visit Provider Internal Medicine
DX: I10 Essential (primary) hypertension (principal); E78.5 Hyperlipidemia, unspecified
CPT/HCPCS: 36415; 80053; 80061; 82306; 85025